=== PATIENT | male | born 1970 | race Caucasian/White ===

== ENCOUNTER 2018-03-31 17:23 | Emergency (ER) | payer BC, SELFPAY ==
[2018-03-31 17:34] VITALS: BP 148/93; PULSE 75; RESP 16; TEMP 37; O2SAT 98
[2018-03-31] MEDS: Tetracaine 0.5% 4 ML BTL (17:59)
--- NOTE | 2018-03-31 19:08 | ED.GENADUL_ITS ---
Discharge Plan Disposition Patient Disposition: HOME Discharge Details Chief Complaint: EyeProblem Primary Care Provider: Citlalli Duarte ED Provider: Jack Mckenna Home Meds and New Rx's Prescriptions: Continued Prilosec OTC 20 MG tablet,delayed release (DR/EC) 20 mg PO DAILY RF: 0 ibuprofen 600 MG tablet 600 mg PO Q6H PRN PRNQty: 30 RF: 0 acetaminophen [Tylenol] 325 MG tablet 650 mg PO Q4H PRN PRNQty: 30 RF: 0 Discharge Data Discharge Date/Time-TO BE ENTERED AT DEPARTURE: 03/31/18 19:32 Medical Decision Making Right eye corneal abrasion at 12 o'clock position. No evidence of retained foreign body. Patient states woodchips. Eye was irrigated and patient placed up on erythromycin ointment HPI General Mode of arrival: ambulatory . Date/Time Provider Initiated Documentation: 03/31/18 17:27 . Limitations to Documentation: no limitations . Information obtained by: patient and RN notes reviewed . History of Present Illness 47 year old M presents to the emergency department with the chief complaint of Right eye foreign body, described as mild, with intensity rated at 3. Quality is described as aching, and is localized to the eyes. Patient started experiencing this hour(s) (2) and it has been constant. Patient notes no other symptoms.. Patient did receive the following treatments prior to arrival, none Related Data Home Medications Medication Instructions Recorded Confirmed Prilosec OTC 20 mg PO DAILY 12/27/15 03/31/18 acetaminophen [Tylenol] 650 mg PO Q4H PRN PRN #30 tab 07/01/17 03/31/18 ibuprofen 600 mg PO Q6H PRN PRN #30 tablet 07/01/17 03/31/18 Previous Rx's Medication Instructions Recorded acetaminophen [Tylenol] 650 mg PO Q4H PRN PRN #30 tab 07/01/17 ibuprofen 600 mg PO Q6H PRN PRN #30 tablet 07/01/17 Allergies Allergy/AdvReac Type Severity Reaction Status Date / Time No Known Allergies Allergy Unverified 07/28/17 08:06 General Stated Complaint: EyeProblem AVILA: 4 Review of Systems Constitutional Denies chills, Denies fever(s) and Denies headache(s) Eyes Reports as per HPI, Reports blurry vision, Denies eye discharge, Denies loss of vision, Reports eye pain and Denies seeing flashes ENT Denies headache(s), Denies nasal congestion and Denies nasal discharge Neurologic Denies headache(s) and Denies loss of vision PFS Medical History Erectile dysfunction Family history of prostate cancer GERD (gastroesophageal reflux disease) Hydrocele Hypertriglyceridemia Joint pain Left inguinal hernia Obstructive sleep apnea of adult Surgical History Cholecystectomy (06/30/16) Hydrocelectomy (07/28/17) Varicocele Ligation Family History Other Neoplasm Social History Smoking/Tobacco Use Status: Never Exam Const General: cooperative Orientation: alert, awake and oriented x3 HENMT Head: normal to inspection, normocephalic and atraumatic Ears: hearing grossly normal bilaterally and external ears normal General nose exam: external nose normal Eyes Alignment and Position: alignment normal Periorbital: periorbital findings normal Eyelids: eyelids normal Conjunctivae: conjunctivae normal Sclera: scleral abnormality right scleral injection diffuse Cornea: corneas abnormal on the right fluorescein used and abrasion central, linear and at the following clock position (12); with no foreign body noted and fluorescein used Pupils: PERRL, normal by confrontation and accommodation normal EOM: EOM intact bilaterally Neck Neck: normal visual inspection, full ROM, trachea midline and supple Course Vital Signs Temperature 37.0 C 03/31/18 17:34 Pulse 75 03/31/18 17:34 Respiratory Rate 16 03/31/18 17:34 Blood Pressure 148/93 H 03/31/18 17:34 Pulse Oximetry 98 03/31/18 17:34 Temperature 37.0 C 03/31/18 17:34 Temperature Source Skin 03/31/18 17:34 Pulse 75 03/31/18 17:34 Respiratory Rate 16 03/31/18 17:34 Respiratory Effort Non-Labored 03/31/18 17:37 Blood Pressure 148/93 H 03/31/18 17:34 Blood Pressure Position Sitting 03/31/18 17:34 Pulse Oximetry 98 03/31/18 17:34 Oxygen Delivery Method Room Air 03/31/18 17:34 Oxygen Flow Rate 0 03/31/18 17:34 Pain Level 3 03/31/18 17:34
[2018-03-31] MEDS: Erythromycin Ophth Oint 3.5 GM TUBE OD (19:25)
== END 2018-03-31 19:32 | disposition home or self-care (01) ==
PROVIDERS: Emergency Provider Nurse Practitioner Family; PCP Nurse Practitioner
DX: S05.01XA Injury of conjunctiva and corneal abrasion without foreign body, right eye, initial encounter (principal); T15.01XA Foreign body in cornea, right eye, initial encounter
CPT/HCPCS: 99284; 99283

== ENCOUNTER 2018-09-02 01:18 | Outpatient (CLI) | payer BC, SELFPAY ==
--- NOTE | 2018-09-02 12:02 | DI.US_ITS ---
SYMPTOMS/DIAGNOSIS: LT TESTICULAR PAIN, N50.812, LT INGUINAL HERNIA, K40.90, LT HYDROCELE, N43.3 LEFT INGUINAL ULTRASOUND: Sonographic evaluation of the left inguinal region was performed. No cystic or solid mass is seen. No evidence of a left inguinal hernia is seen. IMPRESSION: No sonographic evidence of a left inguinal hernia. TESTICULAR ULTRASOUND: Routine examination was performed. The right testicle measures 3.9 x 2.4 x 2.9 cm. It is homogeneous with normal blood flow. No evidence of an intratesticular mass or torsion. The right epididymis is unremarkable. Note is made of a small right hydrocele measuring 3.3 x 0.8 x 2.0 cm. The left testicle measures 4 x 2 x 2.6 cm. It is homogeneous with normal blood flow. No evidence of an intratesticular mass or torsion is seen. The left epididymis shows normal blood flow. The left epididymal head is slightly more prominent compared to the right but no mass or abnormal blood flow is seen. Note is made of a small left hydrocele measuring 1.7 x 1.8 x 1.2 cm. IMPRESSION: 1. No evidence of an intratesticular mass or torsion. 2. Small bilateral hydroceles.
== END 2018-09-02 01:38 ==
PROVIDERS: PCP Nurse Practitioner; Visit Provider Nurse Practitioner
DX: N50.812 Left testicular pain (principal); K40.90 Unilateral inguinal hernia, without obstruction or gangrene, not specified as recurrent; N43.3 Hydrocele, unspecified
CPT/HCPCS: 76857; 76870

== ENCOUNTER 2018-09-13 13:59 | Outpatient (REF) | payer BC, SELFPAY ==
[2018-09-13 18:54] LABS: Cholesterol 306 mg/dL (50-200); HDL Cholesterol 21 mg/dL (40-60); Magnesium 2.1 mg/dL (1.8-2.4); Vitamin B12 661 pg/mL (193-986)
[2018-09-13 18:55] LABS: Triglyceride 1206 mg/dL (30-150)
[2018-09-13 19:44] LABS: LDL CHOLESTEROL 73 mg/dL (<100)
== END 2018-09-13 14:19 ==
LOC: NCHCN 13:59
PROVIDERS: PCP Nurse Practitioner; Visit Provider Nurse Practitioner
DX: K21.9 Gastro-esophageal reflux disease without esophagitis (principal); E78.1 Pure hyperglyceridemia
CPT/HCPCS: 80061; 83721; 82607; 83735

== ENCOUNTER 2019-03-14 08:18 | Outpatient (REF) | payer BC, SELFPAY ==
[2019-03-14 11:47] LABS: ALT 36 U/L (16-63); AST 21 U/L (15-37); Albumin 4.1 g/dL (3.4-5.0); Alkaline Phosphatase 110 U/L (46-116); Anion Gap 12.2 mmol/L (3-11); BUN 16 mg/dL (7-18); Bilirubin, Total 0.7 mg/dL (0.2-1.0); CO2 24.8 mmol/L (21.0-32.0); CREATININE 1.05 mg/dL (0.70-1.30); Calcium 9.3 mg/dL (8.5-10.1); Calculated LDL 51 mg/dL; Chloride 104 mmol/L (98-107); Cholesterol 160 mg/dL (<200); Glucose 102 mg/dL (74-106); HDL Cholesterol 30 mg/dL (40-60); Potassium 4.6 mmol/L (3.5-5.1); Sodium 141 mmol/L (136-145); Total Protein 7.2 g/dL (6.4-8.2); Triglyceride 395 mg/dL (<150)
== END 2019-03-14 08:38 ==
LOC: NCHCN 08:18
PROVIDERS: PCP Nurse Practitioner; Visit Provider Nurse Practitioner
DX: E78.1 Pure hyperglyceridemia (principal)
CPT/HCPCS: 80053; 80061; 83036

== ENCOUNTER 2019-08-12 13:44 | Emergency (ER) | payer BC, SELFPAY ==
[2019-08-12 13:49] VITALS: BP 154/102; PULSE 91; TEMP 36.6; O2SAT 97
--- NOTE | 2019-08-12 14:03 | ED.GENADUL_ITS ---
Discharge Plan Disposition Patient Disposition: HOME Condition: Stable Discharge Details Chief Complaint: Abd Prob Clinical Impression: Colitis, Hernia Primary Care Provider: Citlalli Duarte ED Provider: Gonsalo Starks Home Meds and New Rx's Prescriptions: Continued Prilosec OTC 20 MG tablet,delayed release (DR/EC) 20 mg PO DAILY RF: 0 naproxen sodium [Aleve] 220 mg Tablet 440 mg PO QDAY PRNRF: 0 Discharge Instructions Instructions: Colitis (ED), Ventral Hernia (ED) Additional Instructions: Please allow for bowel rest. Maintain a clear liquid diet today and tomorrow. Tomorrow night you may advance to bland soft foods (rice, bread). Advance diet slowly the day after as tolerated. Avoid any activities that reproduce pain or hernia. Please follow-up with general surgery. Call for an appointment. Please contact your primary care physician to arrange follow-up. Return to the ER for any worsening or new concerning symptoms. Referrals: Citlalli Duarte [Primary Care Provider] - Bhakti Nassar DO [OSTEOPATHIC DOCTOR] - Discharge Data Discharge Date/Time-TO BE ENTERED AT DEPARTURE: 08/12/19 16:07 Medical Decision Making 1413??49-year-old male presents with 2 to 3 days of umbilical and left lower quadrant abdominal pain, tender palpation left lower quadrant, concerned that he has had intermittent bulging hernia that is not currently present. Patient has had remote left inguinal hernia repair in the past. Consider diverticulitis versus colitis versus intermittent hernia. Plan to obtain CT imaging to assess for acute surgical pathology. Labs to assess renal function and for pancreatitis. Will maintain n.p.o. status and provide IV fluid. 15:55 --CT the abdomen pelvis was interpreted by radiology: IMPRESSION: 1. Possible cystitis. 2. Mild enlargement fat containing right inguinal hernia from prior exam. 3. Possible mild distal left-sided colitis and proctitis versus artifact of incomplete distention. Pattern not typical for diverticulitis. All results were reviewed with the patient. Questions were addressed. I encouraged him to follow-up with general surgery and will refer him to on-call Dr. Nassar. I advised him to return immediately should have any worsening or new concerning symptoms. Lab Data Lab results reviewed: Yes I reviewed the patient's lab results. Lab results narrative: Laboratory Tests Range/Units 08/12/19 08/12/1908/11/20 14:12 14:12 14:12 WBC (4.4-10.8) k/cumm 8.83 RBC (4.50-6.00) m/cumm 5.38 Hgb (13.5-17.5) g/dL 15.3 Hct (40.0-50.0) % 43.8 MCV (80-95) fL 81.4 MCH (27.0-33.0) pg 28.4 MCHC (32.0-36.0) g/dL 34.9 RDW (11.8-14.1) % 13.7 Plt Count (130-400) x1000/uL 221 MPV (8.0-11.0) fL 10.1 Immature Gran % % 0.2 Neutrophils % 64.5 Lymphocytes % 24.5 Monocytes % 9.6 Eosinophils % 1.1 Basophils % 0.1 Absolute Neutrophils (1.2-6.7) k/cumm 5.69 Absolute Lymphocytes (1.2-3.4) k/cumm 2.16 Absolute Monocytes (0.11-0.7) k/cumm 0.85 H Absolute Eosinophils (0.0-0.7) k/cumm 0.10 Absolute Basophils (0.0-0.2) k/cumm 0.01 Sodium (136-145) mmol/L 136 Potassium (3.5-5.1) mmol/L 3.8 Chloride (98-107) mmol/L 103 Carbon Dioxide (21.0-32.0) mmol/L 23.2 Anion Gap (3-11) mmol/L 9.8 BUN (7-18) mg/dL 8 Creatinine (0.70-1.30) mg/dL 1.22 Estimated GFR/1.73 m2 (mL/min/1.73m2) >= 60.00 Glucose (74-106) mg/dL 151 H Calcium (8.5-10.1) mg/dL 8.2 L Total Bilirubin (0.2-1.0) mg/dL 0.5 AST (15-37) U/L 15 ALT (16-63) U/L 25 Alkaline Phosphatase (46-116) U/L 114 Total Protein (6.4-8.2) g/dL 6.9 Albumin (3.4-5.0) g/dL 3.7 Lipase (73-393) U/L 101 Urine Color (Yellow) Urine Clarity (Clear) Urine pH (5-8) Ur Specific [place] (1.005-1.025) Urine Protein (Negative) mg/dL Urine Ketones (Negative) mg/dL Urine Blood (Negative) Urine Nitrite (Negative) Urine Bilirubin (Negative) Urine Urobilinogen (Up TO 0.2) EU/dL Ur Leukocyte Esterase (Negative) Urine Glucose (Negative) mg/dL Range/Units 08/12/19 15:58 WBC (4.4-10.8) k/cumm RBC (4.50-6.00) m/cumm Hgb (13.5-17.5) g/dL Hct (40.0-50.0) % MCV (80-95) fL MCH (27.0-33.0) pg MCHC (32.0-36.0) g/dL RDW (11.8-14.1) % Plt Count (130-400) x1000/uL MPV (8.0-11.0) fL Immature Gran % % Neutrophils % Lymphocytes % Monocytes % Eosinophils % Basophils % Absolute Neutrophils (1.2-6.7) k/cumm Absolute Lymphocytes (1.2-3.4) k/cumm Absolute Monocytes (0.11-0.7) k/cumm Absolute Eosinophils (0.0-0.7) k/cumm Absolute Basophils (0.0-0.2) k/cumm Sodium (136-145) mmol/L Potassium (3.5-5.1) mmol/L Chloride (98-107) mmol/L Carbon Dioxide (21.0-32.0) mmol/L Anion Gap (3-11) mmol/L BUN (7-18) mg/dL Creatinine (0.70-1.30) mg/dL Estimated GFR/1.73 m2 (mL/min/1.73m2) Glucose (74-106) mg/dL Calcium (8.5-10.1) mg/dL Total Bilirubin (0.2-1.0) mg/dL AST (15-37) U/L ALT (16-63) U/L Alkaline Phosphatase (46-116) U/L Total Protein (6.4-8.2) g/dL Albumin (3.4-5.0) g/dL Lipase (73-393) U/L Urine Color (Yellow) Yellow Urine Clarity (Clear) Clear Urine pH (5-8) 5.5 Ur Specific [place] (1.005-1.025) <= 1.005 Urine Protein (Negative) mg/dL Negative Urine Ketones (Negative) mg/dL Negative Urine Blood (Negative) Negative Urine Nitrite (Negative) Negative Urine Bilirubin (Negative) Negative Urine Urobilinogen (Up TO 0.2) EU/dL 0.2 Ur Leukocyte Esterase (Negative) Negative Urine Glucose (Negative) mg/dL Negative HPI General Mode of arrival: ambulatory . Date/Time Provider Initiated Documentation: 08/12/19 13:48 . Limitations to Documentation: no limitations . Information obtained by: patient . HPI Narrative: 49-year-old male presents with chief complaint of abdominal pain. Pain started 2 to 3 days ago and has persisted. Pain is intermittent. Described as cramping. Moderate to severe intensity. Pain localized to umbilical area and left lower quadrant. He is concerned that pain is secondary to umbilical hernia as he intermittently feels a bulge in the umbilical area. Bulge is not currently present. He currently has mild discomfort in his abdomen. Seems to present more postprandially when he has some cramping. He has associated loose stool over the past 2 days. Related Data Home Medications Medication Instructions Recorded Confirmed Prilosec OTC 20 mg PO DAILY 12/27/15 08/12/19 naproxen sodium [Aleve] 440 mg PO QDAY PRN 08/12/19 08/12/19 Allergies Allergy/AdvReac Type Severity Reaction Status Date / Time No Known Allergies Allergy Unverified 08/12/19 13:52 General Stated Complaint: Abd Prob AVILA: 3 Review of Systems All systems reviewed & are unremarkable except as noted in HPI and below Constitutional Constitutional: Denies fever(s) Gastrointestinal Gastrointestinal: Reports abdominal pain and Reports loose stools (Over the past few days) Genitourinary Genitourinary: Denies hematuria, Denies dysuria, Denies scrotal swelling, Denies testicular pain, Denies urinary frequency and Denies urinary urgency [facility] Medical History Erectile dysfunction Family history of prostate cancer GERD (gastroesophageal reflux disease) Hydrocele Hypertriglyceridemia Joint pain Left inguinal hernia Obstructive sleep apnea of adult Surgical History Cholecystectomy (06/30/16) Hydrocelectomy (07/28/17) Varicocele Ligation Family History Other Neoplasm Social History Smoking/Tobacco Use Status: Never Alcohol Intake: current Alcohol Intake frequency: holidays/special occasions only Drug use: Never Substance use type: does not use Do you feel safe at home: Yes Do you feel safe in your relationship?: Yes Exam Const General: cooperative and no acute distress HENMT Mouth: moist mucous membranes Eyes Conjunctivae: normal conjunctivae Sclera: normal sclerae Neck Neck: trachea midline and supple Resp Auscultation: clear to auscultation bilaterally, no rales, no rhonchi and no wheezes Cardio Jugular venous pressure: no JVD Rate: regular rate and not tachycardic Rhythm: regular rhythm GI Inspection: non-distended Palpation: soft, not firm, no guarding, no hernias, no masses, not rigid and tender in the LLQ Skin General skin exam: no rashes or lesions noted Neuro General: patient alert, patient awake and tone normal Extrem General: no edema Psych Appearance: grossly normal Mental Status: mental status grossly normal Course Vital Signs Vital signs: Vital Signs Temperature 36.6 C 08/12/19 13:49 Pulse 91 H 08/12/19 13:49 Blood Pressure 154/102 H 08/12/19 13:49 Pulse Oximetry 97 08/12/19 13:49 Temperature 36.6 C 08/12/19 13:49 Temperature Source Temporal Artery Scan 08/12/19 13:49 Pulse 91 H 08/12/19 13:49 Respiratory Effort Non-Labored 08/12/19 13:51 Blood Pressure 154/102 H 08/12/19 13:49 Blood Pressure Position Sitting 08/12/19 13:49 Pulse Oximetry 97 08/12/19 13:49 Oxygen Delivery Method Room Air 08/12/19 13:49 Oxygen Flow Rate 0 08/12/19 13:49 Pain Level 8 08/12/19 13:49
[2019-08-12 14:20] LABS: Abs Immature Grans 0.02 k/cumm (0.0-0.09); Absolute Basophil Count 0.01 k/cumm (0.0-0.2); Absolute Lymphocyte Count 2.16 k/cumm (1.2-3.4); Absolute Monocyte Count 0.85 k/cumm (0.11-0.7); Absolute Neutrophil Count 5.69 k/cumm (1.2-6.7); Basophils % 0.1; Eosinophils % 1.1; HCT 43.8 % (40.0-50.0); HGB 15.3 g/dL (13.5-17.5); Immature Grans % 0.2 %; Lymphocytes % 24.5; Mean Corp. HGB Concentration 34.9 g/dL (32.0-36.0); Mean Corpuscular Hemoglobin 28.4 pg (27.0-33.0); Mean Corpuscular Volume 81.4 fL (80-95); Mean Platelet Volume 10.1 fL (8.0-11.0); Monocytes % 9.6; Neutrophils % 64.5; Platelet Count 221 x1000/uL (130-400); RBC 5.38 m/cumm (4.50-6.00); RBC Distribution Width 13.7 % (11.8-14.1); White Blood Cell Count 8.83 k/cumm (4.4-10.8)
[2019-08-12] MEDS: Normal Saline 1,000 ML 125 ML IV (14:22)
[2019-08-12] MEDS: Normal Saline Flush 10 ML SYR IVP ×2 (14:22→14:41)
[2019-08-12 14:29] LABS: Lipase 101 U/L (73-393)
[2019-08-12 14:32] LABS: ALT 25 U/L (16-63); AST 15 U/L (15-37); Albumin 3.7 g/dL (3.4-5.0); Alkaline Phosphatase 114 U/L (46-116); Anion Gap 9.8 mmol/L (3-11); BUN 8 mg/dL (7-18); Bilirubin, Total 0.5 mg/dL (0.2-1.0); CO2 23.2 mmol/L (21.0-32.0); CREATININE 1.22 mg/dL (0.70-1.30); Calcium 8.2 mg/dL (8.5-10.1); Chloride 103 mmol/L (98-107); Glucose 151 mg/dL (74-106); Potassium 3.8 mmol/L (3.5-5.1); Sodium 136 mmol/L (136-145); Total Protein 6.9 g/dL (6.4-8.2)
[2019-08-12] MEDS: Omnipaque 350 MG/ML 100 ML BTL IJ (14:40)
[2019-08-12] MEDS: Normal Saline - Diluent 50 ML VIAL IV (14:41)
--- NOTE | 2019-08-12 15:13 | DI.VRAD_ITS ---
PROCEDURE INFORMATION: Exam: CT Abdomen And Pelvis With Contrast Exam date and time: 08/12/2019 2:49 PM Age: 49 years old Clinical indication: Other: Llq and umbilical pain; Prior surgery; Surgery date: 6+ months; Surgery type: Inguinal hernia surgery 2 years ago. Pain since TECHNIQUE: Imaging protocol: Computed tomography of the abdomen and pelvis with intravenous contrast. Radiation optimization: All CT scans at this facility use at least one of these dose optimization techniques: automated exposure control; mA and/or kV adjustment per patient size (includes targeted exams where dose is matched to clinical indication); or iterative reconstruction. Contrast material: OMNIPAQUE 350; Contrast volume: 100 ml; Contrast route: IV; COMPARISON: CT ABD PELVIS WITH CONTRAST 06/28/2017 8:36 AM FINDINGS: Mediastinum: Moderate-sized hiatal hernia again seen. Liver: Mild fatty liver. Gallbladder and bile ducts: Status post cholecystectomy. Pancreas: Normal. No ductal dilation. Spleen: Normal. No splenomegaly. Adrenals: Normal. No mass. Kidneys and ureters: Normal. No hydronephrosis. Stomach and bowel: There is mild diverticulosis. There is mild wall edema at the level of the sigmoid colon and rectum versus artifact of incomplete distention. There is no adjacent inflammatory change. Appendix: Appendix identified, within normal limits. Intraperitoneal space: Unremarkable. No free air. No significant fluid collection. Vasculature: Unremarkable. No abdominal aortic aneurysm. Lymph nodes: Unremarkable. No enlarged lymph nodes. Bladder: The bladder wall appears slightly thickened allowing for the degree of distention. Reproductive: Unremarkable as visualized. Bones/joints: Moderate lower lumbar spondylosis. Soft tissues: Small, fat containing periumbilical hernia. Small, fat containing right inguinal hernia is larger than seen on prior study. By report it is understood the left inguinal hernia has been repaired. IMPRESSION: 1. Possible cystitis. 2. Mild enlargement fat containing right inguinal hernia from prior exam. 3. Possible mild distal left-sided colitis and proctitis versus artifact of incomplete distention. Pattern not typical for diverticulitis. COMMENTS: Preliminary interpretation is based on receipt of 1258 image(s). A final report will be issued subsequently. Dictated and Authenticated by: Bushra Fuchs MD. Ordering:ZOILA Brush MD
--- NOTE | 2019-08-12 15:50 | DI.CT_ITS ---
EXAM: CT ABDOMEN PELVIS W CLINICAL HISTORY: LLQ and umbilical pain COMPARISON: CT ABD PELVIS WITH CONTRAST from 06/28/2017 FINDINGS: CT examination of the abdomen and pelvis was performed with a bolus infusion of 100 cc of Omnipaque 3 50. Images obtained through the lung bases are unremarkable. Note is made of a hiatal hernia. The liver and spleen appear normal. Pancreas appears normal. Abdominal aorta is of normal diameter. No major vascular abnormality is seen. Adrenals and kidneys appear. No evidence of urinary tract obstruction or calcification. No abdominal or pelvic adenopathy is seen. Small to moderate-sized fat containing right inguinal her tiffanie noted. Appendix is normal. No evidence of bowel obstruction. There is question of mild colonic wall thickening, particularly involving rectosigmoid, question very faint pericolonic edema, consider colitis. No specific evidence of diverticulitis. There is wall thickening of the urinary bladder which is nonspecific, the differential diagnosis woul d include cystitis. IMPRESSION: Questionable colonic wall findings, colitis may be considered. Please correlate clinically. Urinary bladder wall thickening, nonspecific, cystitis versus chronic bladder outlet obstruction, ple ase correlate clinically.
[2019-08-12 16:06] VITALS: BP 154/102; PULSE 91; TEMP 36.6; O2SAT 97
[2019-08-12 16:06] LABS: Bilirubin Negative (Negative); Blood Negative (Negative); Clarity Clear (Clear); Glucose Negative (Negative); Ketones Negative (Negative); Leukocyte Esterase Negative (Negative); Nitrite Negative (Negative); Specific Gravity <= 1.005 (1.005-1.025); Urobilinogen 0.2 EU/dL (Up TO 0.2); pH 5.5 (5-8)
== END 2019-08-12 16:07 | disposition home or self-care (01) ==
PROVIDERS: Emergency Provider Student in an Organized Health Care Education/Training Program; PCP Nurse Practitioner
DX: K52.89 Other specified noninfective gastroenteritis and colitis (principal); K40.90 Unilateral inguinal hernia, without obstruction or gangrene, not specified as recurrent
CPT/HCPCS: 36415; 80053; 83690; 96360; 96361; 99285; 74177; 81003; 85025; 99284; J3490

== ENCOUNTER 2019-12-05 08:54 | Outpatient (REF) | payer BC, SELFPAY ==
[2019-12-05 19:17] LABS: Hemoglobin A1C 5.7 % (<5.7)
[2019-12-05 19:23] LABS: Cholesterol 237 mg/dL (<200); HDL Cholesterol 25 mg/dL (40-60); Triglyceride 561 mg/dL (<150)
[2019-12-05 19:38] LABS: LDL CHOLESTEROL 77 mg/dL (<100)
== END 2019-12-05 09:14 ==
LOC: NCHCN 08:54
PROVIDERS: PCP Nurse Practitioner; Visit Provider Nurse Practitioner
DX: R73.03 Prediabetes (principal); E78.1 Pure hyperglyceridemia; K21.9 Gastro-esophageal reflux disease without esophagitis; G47.33 Obstructive sleep apnea (adult) (pediatric)
CPT/HCPCS: 80061; 83721; 83036

== ENCOUNTER 2020-02-09 08:03 | Outpatient (CLI) | payer BC, SELFPAY ==
[2020-02-11 11:34] LABS: SARS-CoV-2 RNA Not Detected (NotDetected)
[2020-02-11 11:35] LABS: SARS-CoV-2 RNA Source Nasal/Nares
== END 2020-02-09 08:23 ==
PROVIDERS: PCP Nurse Practitioner; Visit Provider Surgery
DX: Z11.59 Encounter for screening for other viral diseases (principal); Z01.818 Encounter for other preprocedural examination
CPT/HCPCS: U0003

== ENCOUNTER 2020-02-13 13:21 | Day surgery (SDC) | payer BC, SELFPAY ==
[2020-02-13 13:45] VITALS: BP 145/101; PULSE 72; RESP 18; TEMP 36.4; O2SAT 96
[2020-02-13] MEDS: Lactated Ringers 1,000 ML 80 ML IV (14:05)
--- NOTE | 2020-02-13 14:45 | W.PM.DSUDISC ---
Discharge Plan Disposition Patient Disposition: HOME Condition: Good Discharge Details Reason For Visit: Colonoscopy Attending Provider: Latasha Henry Primary Care Provider: Citlalli Duarte Home Meds and New Rx's Prescriptions: Continued omeprazole magnesium [Prilosec OTC] 20 MG tablet,delayed release (DR/EC) 20 mg PO DAILY RF: 0 sildenafil 50 mg tablet 50 mg PO DAILY PRNRF: 0 atorvastatin 20 mg tablet 20 mg PO QHS RF: 0 potassium gluconate 595 mg (99 mg) tablet 595 mg PO DAILY RF: 0 One-A-Day Men's 50 Plus 400-20-370 mcg tablet 1 tab PO QHS RF: 0 naproxen sodium [Aleve] 220 mg Tablet 440 mg PO QDAY PRNRF: 0 Discontinued polyethylene glycol 3350 17 gram/dose powder 238 g PO ONCE Qty: 238 RF: 0 bisacodyl [Dulcolax (bisacodyl)] 5 mg tablet,delayed release (DR/EC) 5 mg PO ONCE Qty: 4 RF: 0 Discharge Instructions Additional Instructions: Findings: Your colonoscopy showed mild diverticulosis. Make sure to take in 30grams of fiber daily. Follow up: Plan for routine screening colonoscopy in 10 years or sooner if symptoms arise. Please call if you develop: fevers >101.5 Nausea or Vomiting Abdominal pain that is not transient DAY SURGERY UNIT POST COLONOSCOPY INSTRUCTIONS 1. Because there will be medication in your system for the next 24 hours, you may feel a little sleepy. Your coordination will be affected. Therefore: a. Do not drive or operate dangerous equipment for 24 hours. b. Do not drink alcohol beverages for 24 hours (not even beer). c. Plan to go home and rest for the day. 2. Generally there are no restrictions on your activity after a day or so has gone by, but you may feel a bit fatigued for a few days. 3 After you arrive home you may have a light meal and return to a normal diet as you can tolerate it without feeling sick to your stomach. 4. After surgery, you may feel pain or discomfort. This should be only transient, but if it persists please contact your doctor. 5. If there are any questions regarding the findings of your procedure, please feel free to contact your doctor. 6. If you are unable to contact your doctor with a problem, contact the hospital at [phone]. 7. Continue all your regular medications unless directed otherwise. I understand the above instructions and have no questions. Signature of Patient or Responsible Adult Escort Date/Time Name of Responsible Adult Escort Signature of Nurse Date/Time Activity:: Activity as Tolerated Diet:: As Tolerated Discharge Orders Discharge Orders: Discharge Order (Routine); Ordered 02/13/20 Ordered By: Latasha Henry DS: Diagnosis Discharge Diagnosis (1) Diverticulosis: Status: Acute
--- NOTE | 2020-02-13 14:46 | W.COLOREPORT ---
Colonoscopy Report Date of procedure: 02/13/20 Pre-op diagnosis general: Screening Post-op diagnosis procedure note: other (Mild diverticulosis) Procedure: Colonoscopy Surgeon: Latasha Henry Anesthesia proc note operative: MAC Indications: This 49 year old man presents for his first screening colonoscopy. No symptoms or FH colon cancer. Recent CT to evaluate abdominal pain showed questionable colitis of the rectosigmoid region. Procedure Description: The patient was placed in the left [place] position. Propofol was titrated to sedation. Digital rectal examination revealed no abnormalities. The scope was advanced to the cecum without difficulty. The ileocecal valve and appendiceal orifice were clearly identified. The prep was good. The scope was slowly withdrawn over the course of greater than 6 minutes with no abnormalities seen in the ascending, transverse, descending colon. The sigmoid colon was carefully inspected with no obvious inflammation present. He had mild diverticulosis. The rectum was normal including on retroflexed view. The patient tolerated the procedure well and was stable to recovery. Plan for routine screening colonoscopy in 10 years or sooner if symptoms indicate.
[2020-02-13 16:08] VITALS: BP 130/85; PULSE 70; RESP 18; TEMP 36.6; O2SAT 96
== END 2020-02-13 16:25 | disposition home or self-care (01) ==
PROVIDERS: PCP Nurse Practitioner; Visit Provider Surgery
PROC: 0DJD8ZZ Inspection of Lower Intestinal Tract, Via Natural or Artificial Opening Endoscopic (ICD-10-PCS; CPT 45378; principal; 2020-02-13 13:30)
DX: Z12.11 Encounter for screening for malignant neoplasm of colon (principal); K57.30 Diverticulosis of large intestine without perforation or abscess without bleeding
CPT/HCPCS: 45378; J2001

== ENCOUNTER 2020-09-09 12:30 | Outpatient (REF) | payer BC, SELFPAY ==
[2020-09-09 15:37] LABS: ALT 30 U/L (16-63); AST 15 U/L (15-37); Albumin 3.9 g/dL (3.4-5.0); Alkaline Phosphatase 98 U/L (46-116); Anion Gap 9.3 mmol/L (3-11); BUN 12 mg/dL (7-18); Bilirubin, Total 0.7 mg/dL (0.2-1.0); CO2 25.7 mmol/L (21.0-32.0); CREATININE 1.1 mg/dL (0.70-1.30); Calcium 8.7 mg/dL (8.5-10.1); Calculated LDL 35 mg/dL (<100); Chloride 107 mmol/L (98-107); Cholesterol 127 mg/dL (<200); Glucose 128 mg/dL (74-106); HDL Cholesterol 26 mg/dL (40-60); Potassium 4.3 mmol/L (3.5-5.1); Sodium 142 mmol/L (136-145); Total Protein 6.6 g/dL (6.4-8.2); Triglyceride 331 mg/dL (<150)
[2020-09-09 22:14] LABS: PSA, Screening 0.3 ng/mL (0.0-3.5)
== END 2020-09-09 12:31 | disposition home or self-care (01) ==
LOC: NCHCN 12:30
PROVIDERS: PCP Nurse Practitioner; Visit Provider Physician Assistant
DX: R73.03 Prediabetes (principal); E78.1 Pure hyperglyceridemia; Z12.5 Encounter for screening for malignant neoplasm of prostate
CPT/HCPCS: 80053; 80061; 84153; 83036

== ENCOUNTER 2020-09-17 11:31 | Outpatient (REF) | payer BC, SELFPAY ==
[2020-09-17 19:43] LABS: ESR < 1 mm/hr (0-20)
== END 2020-09-17 11:32 | disposition home or self-care (01) ==
LOC: NCHCN 11:31
PROVIDERS: PCP Nurse Practitioner; Visit Provider Physician Assistant
DX: M60.9 Myositis, unspecified (principal)
CPT/HCPCS: 85652

== ENCOUNTER 2021-03-26 07:46 | Emergency (ER) | payer SELFPAY ==
--- NOTE | 2021-03-26 08:30 | ED.GENADUL_ITS ---
Discharge Plan Disposition Patient Disposition: HOME Condition: Stable Discharge Details Clinical Impression: Pain and swelling of left knee Primary Care Provider: Phillip Sousa ED Provider: Justine Carter Home Meds and New Rx's Prescriptions: New prednisone 20 mg tablet See Rx Instructions .ROUTE .COMPLEX Qty: 12 RF: 0 Continued omeprazole magnesium [Prilosec OTC] 20 MG tablet,delayed release (DR/EC) 20 mg PO DAILY RF: 0 sildenafil 50 mg tablet 50 mg PO DAILY PRNRF: 0 atorvastatin 20 mg tablet 20 mg PO QHS RF: 0 potassium gluconate 595 mg (99 mg) tablet 595 mg PO DAILY RF: 0 One-A-Day Men's 50 Plus 400-20-370 mcg tablet 1 tab PO QHS RF: 0 naproxen sodium [Aleve] 220 mg Tablet 440 mg PO QDAY PRNRF: 0 ibuprofen 200 mg Tablet 200 mg PO Q6H PRNRF: 0 Discharge Instructions Instructions: Gout (ED), Knee Pain (ED) Additional Instructions: Your blood work today is reassuring that this does not appear consistent with a significant knee infection. Your x-ray shows no evidence of significant abnormal findings. Your blood work does reveal that this could potentially be early onset or mild gout. Your knee pain also could be due to a knee strain or sprain or arthritis. Gout, sprain and arthritis can be treated similarly with rest, ice, elevation and nonsteroidal anti-inflammatory drugs such as Aleve or ibuprofen. As you have not had significant relief with Aleve or Toradol here, a prescription for steroids has been sent electronically to your pharmacy to take as directed until finished to help with pain and inflammation. You can continue to alternate Tylenol and Motrin as needed and directed for pain. It is important to rest, ice and elevate your left leg as much as possible. Follow-up with your scheduled appointment with your primary care doctor on April 11. Return immediately to the emergency department if you develop any worsening or concerning symptoms such as fever, worsening pain or redness of your knee. Follow-up with orthopedics if directed by your primary care doctor if symptoms do not improve or worsen. Referrals: Pancho Womack MD [ [facility] STAFF PHYSICIAN] - Discharge Data Discharge Physician: Justine Carter Medical Decision Making 50-year-old male presents with left knee pain for the past 4 days. Denies any known injury but pain worse with movement. Denies fever. Blood pressure hypertensive. Patient appears uncomfortable but nontoxic. He has an antalgic gait consistent with pain with weightbearing and left knee. He has pain with range of motion of left knee with minimal edema suprapateller region. No ligamentous laxity. Neurovascularly intact. Differential diagnosis includes knee strain or sprain, arthritis, gout. Do not suspect septic arthritis. Will obtain screening labs, x-ray and give a dose of Toradol. Labs and imaging reviewed. White blood cell count 11. ESR normal. CRP minimally elevated at 0.55. Uric acid minimally elevated at 7.9. X-ray negative. Patient reassessed and pain not improved with Toradol. Discussed with patient that his symptoms could be associated with early gout, sprain versus strain or arthritis. Discussed that his presentation and blood work does not appear consistent with a significant infection at this time. As he had no relief with NSAIDs at home or here, will treat with a short course of steroids. He was given 1 dose of prednisone here and a prescription sent electronically to his pharmacy. He was advised on importance of RICE. Patient given orthopedic follow-up if needed. He has an appointment with his primary care doctor on April 11. Usual and customary return precautions given prior to discharge. Medical Records Medical records reviewed: Yes I reviewed the patient's medical records. Imaging Data Radiologic Study: Radiologist's impression: XR KNEE LT 3V AP,LAT,LENORA CLINICAL HISTORY: L knee pain, r/o acute disease. TECHNIQUE: 2D digital imaging was performed of the left knee. Three images were obtained. AP, PA tunnel and lateral views were obtained. COMPARISON: No previous for comparison. FINDINGS: BONES: No acute fracture is present. No bony destructive lesion is seen. Enthesophytes are seen at the superior and inferior patella. JOINTS: The knee is normally aligned. No joint effusion is seen. SOFT TISSUE: Normal. IMPRESSION: Normal radiographs of the left knee. HPI General Mode of arrival: ambulatory . Date/Time Provider Initiated Documentation: 03/26/21 08:04 . Limitations to Documentation: no limitations . Information obtained by: patient . HPI Narrative: Patient is a 50-year-old male with a history of hyperlipidemia presents for knee pain for the past 4 days. 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 He denies any known fever or chills. He took Aleve last night without relief. He states the pain is worse with walking, bending or any movement at the left knee. Related Data Home Medications Medication Instructions Recorded Confirmed omeprazole magnesium [Prilosec OTC] 20 mg PO DAILY 12/27/15 03/26/21 naproxen sodium [Aleve] 440 mg PO QDAY PRN 08/12/19 03/26/21 atorvastatin 20 mg tablet 20 mg PO QHS 12/22/19 03/26/21 [id number] acid-vit 1 tab PO QHS 12/22/19 03/26/21 K-lycop 400 mcg-20 mcg-370 mcg tablet potassium gluconate 595 mg (99 mg) 595 mg PO DAILY 12/22/19 03/26/21 tablet sildenafil 50 mg tablet 50 mg PO DAILY PRN 12/22/19 03/26/21 ibuprofen 200 mg PO Q6H PRN 03/26/21 03/26/21 prednisone See Rx Instructions .ROUTE 03/26/21 .COMPLEX #12 tab Previous Rx's Medication Instructions Recorded prednisone See Rx Instructions .ROUTE 03/26/21 .COMPLEX #12 tab Allergies Allergy/AdvReac Type Severity Reaction Status Date / Time No Known Allergies Allergy Unverified 03/26/21 08:35 General AVILA: 3 Review of Systems All systems reviewed & are unremarkable except as noted in HPI and below Constitutional Constitutional: Reports as per HPI, Denies chills and Denies fever(s) Eyes Eyes: Denies blurry vision ENT Ears, Nose, Mouth, and Throat: Denies dizziness, Denies sore throat and Denies throat swelling Cardiovascular Cardiovascular: Denies chest pain and Denies dyspnea Respiratory Respiratory: Denies cough and Denies dyspnea Gastrointestinal Gastrointestinal: Denies abdominal pain, Denies diarrhea and Denies vomiting Genitourinary Genitourinary: Denies hematuria and Denies dysuria Musculoskeletal Musculoskeletal: Denies back pain, Denies numbness and Reports other (L knee pain) Integumentary/Breasts Skin/Breast: Denies lesions and Denies rash Neurologic Neurologic: Denies dizziness, Denies localized weakness and Denies numbness Allergic/Immunologic Allergic/Immunologic: Denies throat swelling PFSH All Active Problems (Updated 03/26/21 @ 10:29 by Justine Carter DO) Pain and swelling of left knee (Acute) Diverticulosis (Acute) Colitis (Acute) Cholelithiasis with acute cholecystitis with biliary obstruction (Acute) Screening for colon cancer (Acute) Prediabetes (Acute) Headache (Acute) Testicular pain (Acute) Medical History (Updated 03/26/21 @ 10:29 by Justine Carter DO) Erectile dysfunction Family history of prostate cancer GERD (gastroesophageal reflux disease) Hydrocele Hypertriglyceridemia Joint pain Left inguinal hernia Obstructive sleep apnea of adult Surgical History Cholecystectomy (06/30/16) Hx of hernia repair Hydrocelectomy (07/28/17) Varicocele Ligation Family History Other Neoplasm Social History Smoking/Tobacco Use Status: Never Smoking risk assessment performed?: Yes Alcohol Intake: current Alcohol Intake frequency: holidays/special occasions only Drug use: Never Substance use type: does not use Details: alcohol: week Do you feel safe at home: Yes Do you feel safe in your relationship?: Yes Exam Const General: cooperative, healthy appearing and no acute distress HENMT Head: normal to inspection Mouth: oral mucosae normal Eyes General: appearance normal, both eyes and all related structures Neck Neck: normal visual inspection Resp Effort & Inspection: normal respiratory effort and able to speak in complete sentences Cardio Rate: regular rate Skin General skin exam: no rashes or lesions noted Neuro General: patient alert, patient awake and patient oriented x3 Motor: muscle tone normal throughout Extrem Other: Pain in L knee with range of motion. Anterior knee slightly warm to touch with minimal edema suprapatellar knee. No crepitus or erythema. No pain with valgus or varus stress. Negative anterior and posterior drawer test. Left DP/PT pulses intact. Psych Appearance: grossly normal Affect: normal affect
[2021-03-26 08:31] VITALS: BP 156/111; PULSE 72; O2SAT 97
--- NOTE | 2021-03-26 08:45 | DI.RAD_ITS ---
Exam(s) XR KNEE LT 3V AP,LAT,LENORA EXAM: XR KNEE LT 3V AP,LAT,LENORA CLINICAL HISTORY: L knee pain, r/o acute disease. TECHNIQUE: 2D digital imaging was performed of the left knee. Three images were obtained. AP, PA t unnel and lateral views were obtained. COMPARISON: No previous for comparison. FINDINGS: BONES: No acute fracture is present. No bony destructive lesion is seen. Enthesophytes are seen at t he superior and inferior patella. JOINTS: The knee is normally aligned. No joint effusion is seen. SOFT TISSUE: Normal. IMPRESSION: Normal radiographs of the left knee. DATA REPOSITORY: RADIATION DOSE DELIVERED:
[2021-03-26] MEDS: Ketorolac 60 MG/2 ML VIAL IM (08:59)
[2021-03-26 09:41] LABS: Abs Immature Grans 0.04 10^3/uL (0.0-0.06); Absolute Basophil Count 0.03 10^3/uL (0.0-0.2); Absolute Eosinophil Count 0.11 10^3/uL (0.0-0.7); Absolute Lymphocyte Count 2.89 10^3/uL (1.2-3.4); Absolute Neutrophil Count 7.19 10^3/uL (1.2-6.7); Basophils % 0.3; HCT 45.4 % (40.0-50.0); HGB 15.2 g/dL (13.5-17.5); Immature Grans % 0.4; Lymphocytes % 25.6; MCH 28.5 pg (27.0-33.0); MCHC 33.5 % (32.0-36.0); MCV 85.2 fL (80-95); MPV 10.1 fL (8.0-11.0); Monocytes % 8.9; Neutrophils % 63.8; Nucleated RBC 0 %; Platelet Count 228 10^3/uL (130-400); RBC 5.33 10^6/uL (4.36-5.78); RDW 12.7 % (11.8-14.1); RDW-SD 39.5 fL; WBC 11.27 10^3/uL (4.4-10.8)
[2021-03-26 09:58] LABS: ALT 27 U/L (16-63); AST 16 U/L (15-37); Albumin 4.2 g/dL (3.4-5.0); Alkaline Phosphatase 92 U/L (46-116); Anion Gap 7.4 mmol/L (3-11); BUN 11 mg/dL (7-18); Bilirubin, Total 0.9 mg/dL (0.2-1.0); C-Reactive Protein 0.55 mg/dL (0.0-0.3); CO2 25.6 mmol/L (21.0-32.0); Calcium 8.7 mg/dL (8.5-10.1); Chloride 104 mmol/L (98-107); Glucose 111 mg/dL (74-106); Potassium 3.8 mmol/L (3.5-5.1); Sodium 137 mmol/L (136-145); Total Protein 7.2 g/dL (6.4-8.2); Uric Acid 7.9 mg/dL (3.5-7.2)
[2021-03-26 10:02] LABS: ESR 4 mm/hr (0-20)
[2021-03-26] MEDS: predniSONE 20 MG TAB 60 MG PO (10:30)
== END 2021-03-26 10:42 | disposition home or self-care (01) ==
PROVIDERS: Emergency Provider Physician Assistant; PCP Physician Assistant
DX: M25.562 Pain in left knee (principal); M22.42 Chondromalacia patellae, left knee
CPT/HCPCS: 73562; 80053; 85652; 96372; 99284; 84550; 85025; 86140; 99283; J1885; J7512

== ENCOUNTER 2021-04-11 07:54 | Outpatient (REF) | payer BC, SELFPAY ==
[2021-04-11 15:07] LABS: ALT 32 U/L (16-63); AST 19 U/L (15-37); Alkaline Phosphatase 89 U/L (46-116); Anion Gap 9.1 mmol/L (3-11); BUN 10 mg/dL (7-18); Bilirubin, Total 0.9 mg/dL (0.2-1.0); CO2 26.9 mmol/L (21.0-32.0); CREATININE 1.1 mg/dL (0.70-1.30); Calcium 8.9 mg/dL (8.5-10.1); Chloride 102 mmol/L (98-107); Cholesterol 294 mg/dL (<200); Glucose 105 mg/dL (74-106); HDL Cholesterol 31 mg/dL (40-60); Potassium 4.4 mmol/L (3.5-5.1); Sodium 138 mmol/L (136-145); Total Protein 6.8 g/dL (6.4-8.2); Triglyceride 647 mg/dL (<150)
[2021-04-11 15:19] LABS: LDL CHOLESTEROL 93 mg/dL (<100)
[2021-04-11 21:59] LABS: PSA, Screening 0.4 ng/mL (0.0-3.5)
== END 2021-04-11 07:55 | disposition home or self-care (01) ==
LOC: NCHCN 07:54
PROVIDERS: PCP Physician Assistant; Visit Provider Physician Assistant
DX: E78.1 Pure hyperglyceridemia (principal); R73.03 Prediabetes; Z12.5 Encounter for screening for malignant neoplasm of prostate
CPT/HCPCS: 80053; 80061; 83721; 84153; 83036

== ENCOUNTER 2021-07-13 18:46 | Emergency (ER) | payer BC, SELFPAY ==
[2021-07-13 18:51] VITALS: BP 165/104; PULSE 71; RESP 18; TEMP 36.6; O2SAT 99
--- NOTE | 2021-07-13 19:45 | DI.CT_ITS ---
Exam(s) CT ABDOMEN PELVIS W EXAM: CT ABDOMEN PELVIS W CLINICAL HISTORY: Abd Pain, Fall, Eval Umbilical Hernia. TECHNIQUE: Imaging Protocol: Axial computed tomography images with coronal and sagittal reformatted images were created and reviewed CONTRAST MATERIAL: Intravenous: Omnipaque 350 Contrast volume:100 ml Oral: no COMPARISON: CT CT ABDOMEN PELVIS W from 08/12/2019 FINDINGS: ABDOMEN: Lung Bases: Normal where visualized. Liver: Mild fatty infiltration.. No measurable mass. Gallbladder and biliary tract: Status post cholecystectomy. No radiodense calculus or dilation. Pancreas: Normal density, no abnormal calcifications or inflammatory process. Small hiatal hernia. Spleen: Normal. Kidneys: Normal size, contour and axis. No radiodense stones or obstructive uropathy. No masses seen. Adrenal glands: No masses seen. Abdominal Aorta: Abdominal portion non-dilated. No change small fatty umbilical hernia. PELVIS: Bladder: wall thickening, similar to prior . No calculi.No focal mass. Bowel: Sigmoid diverticulosis. No evidence of diverticulitis. No obstruction or bowel wall thickeni ng. Appendix normal. Peritoneal cavity: No ascites, collection or mesenteric inflammatory response. No change right fat co ntaining inguinal hernia. Bones: Degenerative disc changes at L5-S1. Reproductive organs: Prostate calcifications. Prostate normal size. Lymph nodes: Unremarkable. Impression: No acute abnormality. Stable small fatty containing umbilical hernia. Stable right inguinal hernia. Stable bladder wall thickening. Sigmoid diverticulosis. RADIATION DOSE DELIVERED: 1,018.34mGy.cm Total DLP DATA REPOSITORY: All CT scans at this facility are submitted to the National Radiology Data Registry (NRDR) Dose Index Registry (DIR) with the [employer] ([employer]). RADIATION OPTIMIZATION: All CT scans at this facility use at least one of these dose optimization te chniques: automated exposure control; mA and/or kV adjustment per patient size (includes targeted exa ms where dose is matched to clinical indication); or iterative reconstruction.
--- NOTE | 2021-07-13 19:49 | W.ED.GENAD ---
Discharge Plan Disposition Patient Disposition: HOME Condition: Stable Discharge Details Clinical Impression: Abdominal pain Primary Care Provider: Phillip Sousa ED Provider: La Nena Fajardo Home Meds and New Rx's Prescriptions: Continued omeprazole magnesium [Prilosec OTC] 20 MG tablet,delayed release (DR/EC) 20 mg PO DAILY 0RF atorvastatin 20 mg tablet 20 mg PO QHS 0RF potassium gluconate 595 mg (99 mg) tablet 595 mg PO DAILY 0RF One-A-Day Men's 50 Plus 400-20-370 mcg tablet 1 tab PO QHS 0RF Label Comments: not taking Rx Instructions: give with meal/snack naproxen sodium [Aleve] 220 mg Tablet 440 mg PO QDAY PRN0RF ibuprofen 200 mg Tablet 200 mg PO Q6H PRN0RF Label Comments: uses aleve No Action sildenafil 50 mg tablet 50 mg PO DAILY PRN0RF Rx Instructions: administer 30 minutes to 4 hours before activity Discharge Instructions Instructions: Abdominal Pain (ED) Additional Instructions: At this time the CT shows no significant emergent abnormality with the umbilical hernia. No evidence for any bleeding in the abdomen. You do have some degenerative changes in the L5-S1 area of your lumbar spine. also do have a small hiatal hernia and a small ventral hernia at the umbilicus or bellybutton. There is no evidence for any emergent surgery at this time however if this continues to bother you may follow-up with general surgery. Follow up with primary care provider in 3-5 days. Return to ED sooner if any worsening or concerns. Increase oral fluids. Please take Tylenol or Ibuprofen with food every 4-6 hours as needed for pain and swelling. Referrals: Phillip Sousa [Primary Care Provider] - Emely Alves MD [ [facility] STAFF PHYSICIAN] - Return if symptoms worsen Medical Decision Making 51-year-old male presents to the ER with chief complaint of abdominal pain which was exacerbated after a fall yesterday. Patient states that his feet slipped out from underneath him landing backwards onto his bottom. He states that he was not able to get up for a while. He denies hitting his head no neck or back pain he states that since then his abdomen has been tender in the periumbilical region. He reports he does have a history of 2 umbilical known hernias, and a left inguinal hernia repair which was done here at this hospital. He denies any other associated symptoms. Denies any nausea vomiting diarrhea no fever no chills no problems urinating. Past medical history includes GERD, hydrocele, left inguinal hernia repair, sleep apnea, high cholesterol, diverticulosis, colitis, acute cholecystitis. Surgical history includes cholecystectomy, hydrocelectomy, variceal ligation. On my initial exam he does have a small umbilical hernia which is easily reducible. He does have a possible right sided umbilical mass palpated. No discoloration, bowel sounds normoactive. Discussed options for follow-up with general surgery versus CT abdomen pelvis and lab, shared decision making performed patient opted for CT labs and further evaluation On my initial exam he does have a small umbilical hernia which is easily reducible. He has have a possible right sided umbilical mass palpated. No discoloration bowel sounds normoactive. Discussed options for follow-up with general surgery versus CT abdomen pelvis and lab, shared decision making performed patient opted for CT labs and further evaluation. Labs ordered including CBC, CMP, lactate, magnesium, urinalysis CT abdomen pelvis with contrast. CBC within normal limits, lactate within normal limits Discussed CT results with patient who verbalized understanding. I did express concern over his blood pressure which is 150/104, discussed follow-up with his PCP. He verbalizes understanding and says that it usually will go down on its own. This text was generated using [employer] system, please disregard any oddities of phrase or misspellings. Imaging Data Radiologic Study: Imaging: X-Ray Radiologist's impression: [facility] Radiological Report: FINDINGS: Lungs: Lung bases clear. Diaphragm: Small hiatal hernia. Liver: Probable fatty infiltration of the liver, difficult to confidently diagnose by CT imaging after administration of intravenous contrast. Gallbladder and bile ducts: Prior cholecystectomy with postop biliary dilatation. Pancreas: Normal appearing pancreas. Spleen: Normal appearing spleen. Adrenal glands: Normal appearing adrenal glands. Kidneys and ureters: Normal appearing kidneys. No hydronephrosis. Stomach and bowel: No oral contrast. Stomach partially decompressed. No small bowel dilatation to suggest obstruction. Sigmoid diverticulosis. No evidence of diverticulitis or colitis. Mild prominence of the perirectal veins suggesting probable hemorrhoids. Appendix: Normal diminutive appendix. Intraperitoneal space: No gross ascites or free air. Arteries: Normal caliber abdominal aorta. AMINATA III, SHELTON Preliminary Radiology Report MACHINE ASSEMBLER (QA) DISCREPANCY? If there is a discrepancy between the preliminary and final interpretation, please notify [facility] via [email or web address]. If you do not have access to our QA portal, call our QA team at [phone] CONFIDENTIALITY STATEMENT This report is intended only for the use of the referring physician, and only in accordance with law, If you received this in error, call [phone] Page 2 of 2 Lymph nodes: No pathologically enlarged mesenteric, retroperitoneal, or pelvic sidewall lymph nodes. Urinary bladder: Urinary bladder partially decompressed but circumferentially thick-walled. Reproductive: Normal-sized prostate gland and seminal vesicles. Coarse prostate calcifications. Bones/joints: No acute fracture seen among the bones of the abdomen or pelvis. Moderate discogenic degeneration L5-S1 with severe narrowing of the left L5-S1 neural foramen and partial flattening of the L5 nerve root, image 64 of series 7. Soft tissues: Moderate-sized fat containing right inguinal region hernia. Tiny fat-containing ventral hernia at the umbilicus, doubtful clinical significance. IMPRESSION: 1. No acute visceral or bony injury seen in the abdomen or pelvis. 2. Small hiatal hernia. 3. Urinary bladder partially decompressed but circumferentially thick-walled. Artifact of incomplete distention, acute cystitis, or chronic outflow obstruction could produce this appearance. 4. Probable fatty infiltration of the liver, difficult to confidently diagnose by CT imaging after administration of intravenous contrast. 5. Discogenic degeneration at L5-S1 with severe narrowing of the left L5-S1 neural foramen and partial flattening of the left L5 nerve root. Lab Data Lab results reviewed: Yes I reviewed the patient's lab results. Lab results narrative: Laboratory Tests Range/Units 07/13/21 07/13/21 07/13/21 20:10 20:10 20:10 WBC (4.4-10.8) 10^3/uL 8.46 RBC (4.36-5.78) 10^6/uL 5.37 Hgb (13.5-17.5) g/dL 15.0 Hct (40.0-50.0) % 45.1 MCV (80-95) fL 84.0 MCH (27.0-33.0) pg 27.9 MCHC (32.0-36.0) % 33.3 RDW (11.8-14.1) % 12.5 Plt Count (130-400) 10^3/uL 217 MPV (8.0-11.0) fL 10.4 Immature Gran % 0.4 Neutrophils % 54.7 Lymphocytes % 35.3 Monocytes % 7.3 Eosinophils % 2.1 Basophils % 0.2 Nucleated RBC % % 0 Absolute Neutrophils (1.2-6.7) 10^3/uL 4.62 Absolute Lymphocytes (1.2-3.4) 10^3/uL 2.99 Absolute Monocytes (0.1-0.8) 10^3/uL 0.62 Absolute Eosinophils (0.0-0.7) 10^3/uL 0.18 Absolute Basophils (0.0-0.2) 10^3/uL 0.02 VBG Lactate (0.6-1.4) mmol/L 1.3 Sodium (136-145) mmol/L 140 Potassium (3.5-5.1) mmol/L 3.8 Chloride (98-107) mmol/L 104 Carbon Dioxide (21.0-32.0) mmol/L 27.1 Anion Gap (3-11) mmol/L 8.9 BUN (7-18) mg/dL 13 Creatinine (0.70-1.30) mg/dL 1.0 Estimated GFR/1.73 m2 (mL/min/1.73m2) >= 60.00 Glucose (74-106) mg/dL 106 Calcium (8.5-10.1) mg/dL 8.5 Magnesium (1.8-2.4) mg/dL 2.0 Total Bilirubin (0.2-1.0) mg/dL 0.5 AST (15-37) U/L 9 L ALT (16-63) U/L 26 Alkaline Phosphatase (46-116) U/L 101 Total Protein (6.4-8.2) g/dL 6.6 Albumin (3.4-5.0) g/dL 3.9 Lipase (73-393) U/L 90 Urine Color (Yellow) Urine Clarity (Clear) Urine pH (5-8) Ur Specific [place] (1.005-1.025) Urine Protein (Negative) mg/dL Urine Ketones (Negative) mg/dL Urine Blood (Negative) Urine Nitrite (Negative) Urine Bilirubin (Negative) Urine Urobilinogen (Up TO 0.2) EU/dL Ur Leukocyte Esterase (Negative) Urine Glucose (Negative) mg/dL Range/Units 07/13/21 20:34 WBC (4.4-10.8) 10^3/uL RBC (4.36-5.78) 10^6/uL Hgb (13.5-17.5) g/dL Hct (40.0-50.0) % MCV (80-95) fL MCH (27.0-33.0) pg MCHC (32.0-36.0) % RDW (11.8-14.1) % Plt Count (130-400) 10^3/uL MPV (8.0-11.0) fL Immature Gran % Neutrophils % Lymphocytes % Monocytes % Eosinophils % Basophils % Nucleated RBC % % Absolute Neutrophils (1.2-6.7) 10^3/uL Absolute Lymphocytes (1.2-3.4) 10^3/uL Absolute Monocytes (0.1-0.8) 10^3/uL Absolute Eosinophils (0.0-0.7) 10^3/uL Absolute Basophils (0.0-0.2) 10^3/uL VBG Lactate (0.6-1.4) mmol/L Sodium (136-145) mmol/L Potassium (3.5-5.1) mmol/L Chloride (98-107) mmol/L Carbon Dioxide (21.0-32.0) mmol/L Anion Gap (3-11) mmol/L BUN (7-18) mg/dL Creatinine (0.70-1.30) mg/dL Estimated GFR/1.73 m2 (mL/min/1.73m2) Glucose (74-106) mg/dL Calcium (8.5-10.1) mg/dL Magnesium (1.8-2.4) mg/dL Total Bilirubin (0.2-1.0) mg/dL AST (15-37) U/L ALT (16-63) U/L Alkaline Phosphatase (46-116) U/L Total Protein (6.4-8.2) g/dL Albumin (3.4-5.0) g/dL Lipase (73-393) U/L Urine Color (Yellow) Yellow Urine Clarity (Clear) Clear Urine pH (5-8) 7.0 Ur Specific [place] (1.005-1.025) 1.025 Urine Protein (Negative) mg/dL Negative Urine Ketones (Negative) mg/dL Negative Urine Blood (Negative) Negative Urine Nitrite (Negative) Negative Urine Bilirubin (Negative) Negative Urine Urobilinogen (Up TO 0.2) EU/dL 0.2 Ur Leukocyte Esterase (Negative) Negative Urine Glucose (Negative) mg/dL Negative HPI General Mode of arrival: ambulatory. Date/Time Provider Initiated Documentation: 07/13/21 19:14. Limitations to Documentation: no limitations. Information obtained by: patient, RN notes reviewed and old records reviewed. HPI Narrative: 51-year-old male presents to the ER with chief complaint of abdominal pain which was exacerbated after a fall yesterday. Patient states that his feet slipped out from underneath him landing backwards onto his bottom. He states that he was not able to get up for a while. He denies hitting his head no neck or back pain he states that since then his abdomen has been tender in the periumbilical region. He reports he does have a history of 2 umbilical known hernias, and a left inguinal hernia repair which was done here at this hospital. He denies any other associated symptoms. Denies any nausea vomiting diarrhea no fever no chills no problems urinating. Past medical history includes GERD, hydrocele, left inguinal hernia repair, sleep apnea, high cholesterol, diverticulosis, colitis, acute cholecystitis. Surgical history includes cholecystectomy, hydrocelectomy, variceal ligation. On my initial exam he does have a small umbilical hernia which is easily reducible. He does have a possible right sided umbilical mass palpated. No discoloration, bowel sounds normoactive. Discussed options for follow-up with general surgery versus CT abdomen pelvis and lab, shared decision making performed patient opted for CT labs and further evaluation Related Data Home Medications Medication Instructions Recorded Confirmed omeprazole magnesium 20 mg 20 mg PO DAILY 12/27/15 07/13/21 tablet,delayed release (Prilosec OTC) naproxen sodium 220 mg tablet 440 mg PO QDAY PRN 08/12/19 07/13/21 (Aleve) atorvastatin 20 mg tablet 20 mg PO QHS 12/22/19 07/13/21 vifkxzrzzvax-[id number] acid-vit 1 tab PO QHS 12/22/19 03/26/21 K-lycop 400 mcg-20 mcg-370 mcg tablet (One-A-Day Men's 50 Plus) potassium gluconate 595 mg (99 mg) 595 mg PO DAILY 12/22/19 07/13/21 tablet sildenafil 50 mg tablet 50 mg PO DAILY PRN 12/22/19 07/13/21 ibuprofen 200 mg tablet 200 mg PO Q6H PRN 03/26/21 03/26/21 Allergies Allergy/AdvReac Type Severity Reaction Status Date / Time No Known Allergies Allergy Unverified 07/13/21 18:58 General Stated Complaint: Abd Prob AVILA: 3 Review of Systems All systems reviewed & are unremarkable except as noted in HPI and below Cardiovascular Cardiovascular: Denies chest pain and Denies dyspnea Respiratory Respiratory: Denies dyspnea Gastrointestinal Gastrointestinal: Reports abdominal pain, Denies change in bowel habits, Denies diarrhea, Denies loose stools, Denies nausea and Denies vomiting Genitourinary Genitourinary: Denies dysuria PFSH All Active Problems (Updated 07/13/21 @ 21:42 by La Nena Fajardo) Abdominal pain (Acute) Diverticulosis (Acute) Colitis (Acute) Cholelithiasis with acute cholecystitis with biliary obstruction (Acute) Screening for colon cancer (Acute) Prediabetes (Acute) Headache (Acute) Testicular pain (Acute) Medical History Erectile dysfunction Family history of prostate cancer GERD (gastroesophageal reflux disease) Hydrocele Hypertriglyceridemia Joint pain Left inguinal hernia Obstructive sleep apnea of adult Surgical History Cholecystectomy (06/30/16) Hx of hernia repair Hydrocelectomy (07/28/17) Varicocele Ligation Family History Other Neoplasm Social History Smoking/Tobacco Use Status: Never Smoking risk assessment performed?: Yes Alcohol Intake: current Alcohol Intake frequency: a few times a month Alcohol type: beer Drug use: Never Substance use type: does not use Do you feel safe at home: Yes Do you feel safe in your relationship?: Yes Exam Narrative Exam Narrative: Constitutional: Alert and oriented x3. Appears stated age. Overweight body habitus. Head: Normocephalic, no trauma. Eyes: Pupils PERRL, Red reflex noted, EOM's intact. Eyelids symmetrical without lesions, discharge, or swelling. ENT: Bilateral TM's WNL, External ear normal to inspection, no mastoid TTP, swelling, or erythema, Nasal turbinates WNL, no nasal discharge. Normal dentition, Posterior pharynx WNL, no exudate. Chest: RRR, Normal S1, S2, distal pulses intact. Resp: Lungs clear to auscultation bilaterally, no wheezes, rales, or rhonchi. Abdomen: Soft, non-distended, Normoactive bowel sounds all 4 quads. Small umbilical hernia noted, easily reduced and soft. Possible right umbilical hernia palpated. Musculoskeletal: Normal gait, 5/5 strength to all four extremities. Skin: No suspicious rashes or lesions. Capillary refill less than 2 sec. Neurologic: Cranial nerves II-XII intact. Alert and oriented x 3. Motor: No deficits noted. Sensory: Intact bilaterally all 4 extremities. Hematologic/Lymphatic: No ecchymosis, no lymphadenopathy. Course Vital Signs Vital signs: Vital Signs Temperature 36.6 C 07/13/21 18:51 Pulse 71 07/13/21 18:51 Respiratory Rate 18 07/13/21 18:51 Blood Pressure 165/11 H 07/13/21 18:51 Pulse Oximetry 99 07/13/21 18:51 Temperature 36.6 C 07/13/21 18:51 Temperature Source Skin 07/13/21 18:51 Pulse 71 07/13/21 18:51 Respiratory Rate 18 07/13/21 18:51 Respiratory Effort 07/13/21 19:02 Blood Pressure 165/11 H 07/13/21 18:51 Blood Pressure Position Sitting 07/13/21 18:51 Pulse Oximetry 99 07/13/21 18:51 Oxygen Delivery Method Room Air 07/13/21 18:51 Oxygen Flow Rate 0 07/13/21 18:51 Pain Level 4 07/13/21 18:51 PAWSS Have you Been Recently Intoxicated or Drunk Within the Last 30 days?: No Have you Ever Experienced Previous Episodes of Alcohol Withdrawal?: No Have you ever Experienced Withdrawal Seizures?: No Have you ever Experienced Delirium Tremens(DT)s?: No Have you ever undergone Alcohol Rehabilitation Treatment (i.e, inpt ot outpatient treatment programs)?: No Have you ever Experienced Blackouts?: No Have you ever Combined Alcohol with other Downers within the last 90 days?: No Have you ever Combined Alcohol with any other Substance of Abuse during the last 90 days?: No Positive Blood Alcohol level on Presentation? [PCS.BAL]: No Evidence of Increased Autonomic Activity (i.e. HR>120, tremor, sweating, agitation, nausea)?: No Result: 0
[2021-07-13 20:20] LABS: Abs Immature Grans 0.03 10^3/uL (0.0-0.06); Absolute Basophil Count 0.02 10^3/uL (0.0-0.2); Absolute Eosinophil Count 0.18 10^3/uL (0.0-0.7); Absolute Lymphocyte Count 2.99 10^3/uL (1.2-3.4); Absolute Monocyte Count 0.62 10^3/uL (0.1-0.8); Absolute Neutrophil Count 4.62 10^3/uL (1.2-6.7); Basophils % 0.2; Eosinophils % 2.1; HCT 45.1 % (40.0-50.0); Immature Grans % 0.4; Lactate 1.3 mmol/L (0.6-1.4); Lymphocytes % 35.3; MCH 27.9 pg (27.0-33.0); MCHC 33.3 % (32.0-36.0); MPV 10.4 fL (8.0-11.0); Monocytes % 7.3; Neutrophils % 54.7; Nucleated RBC 0 %; Platelet Count 217 10^3/uL (130-400); RBC 5.37 10^6/uL (4.36-5.78); RDW 12.5 % (11.8-14.1); RDW-SD 38.5 fL; WBC 8.46 10^3/uL (4.4-10.8)
[2021-07-13 20:35] LABS: ALT 26 U/L (16-63); AST 9 U/L (15-37); Albumin 3.9 g/dL (3.4-5.0); Alkaline Phosphatase 101 U/L (46-116); Anion Gap 8.9 mmol/L (3-11); BUN 13 mg/dL (7-18); Bilirubin, Total 0.5 mg/dL (0.2-1.0); CO2 27.1 mmol/L (21.0-32.0); Calcium 8.5 mg/dL (8.5-10.1); Chloride 104 mmol/L (98-107); Glucose 106 mg/dL (74-106); Lipase 90 U/L (73-393); Potassium 3.8 mmol/L (3.5-5.1); Sodium 140 mmol/L (136-145); Total Protein 6.6 g/dL (6.4-8.2)
[2021-07-13 20:39] LABS: Bilirubin Negative (Negative); Blood Negative (Negative); Clarity Clear (Clear); Glucose Negative (Negative); Ketones Negative (Negative); Leukocyte Esterase Negative (Negative); Nitrite Negative (Negative); Specific Gravity 1.025 (1.005-1.025); Urobilinogen 0.2 EU/dL (Up TO 0.2)
[2021-07-13] MEDS: Omnipaque 350 MG/ML 100 ML BTL IJ (20:45)
[2021-07-13] MEDS: Normal Saline Flush 10 ML SYR IVP (20:46)
--- NOTE | 2021-07-13 21:12 | DI.[facility]_ITS ---
PROCEDURE INFORMATION: Exam: CT Abdomen And Pelvis With Contrast Exam date and time: 07/13/2021 8:48 PM Age: 51 years old Clinical indication: Other: Abd pain, fall, eval umilical hernia TECHNIQUE: Imaging protocol: Computed tomography of the abdomen and pelvis with contrast. Contrast material: 350; Contrast volume: 100 ml; Contrast route: INTRAVENOUS (IV); COMPARISON: CT ABDOMEN PELVIS W 08/12/2019 2:42 PM FINDINGS: Lungs: Lung bases clear. Diaphragm: Small hiatal hernia. Liver: Probable fatty infiltration of the liver, difficult to confidently diagnose by CT imaging after administration of intravenous contrast. Gallbladder and bile ducts: Prior cholecystectomy with postop biliary dilatation. Pancreas: Normal appearing pancreas. Spleen: Normal appearing spleen. Adrenal glands: Normal appearing adrenal glands. Kidneys and ureters: Normal appearing kidneys. No hydronephrosis. Stomach and bowel: No oral contrast. Stomach partially decompressed. No small bowel dilatation to suggest obstruction. Sigmoid diverticulosis. No evidence of diverticulitis or colitis. Mild prominence of the perirectal veins suggesting probable hemorrhoids. Appendix: Normal diminutive appendix. Intraperitoneal space: No gross ascites or free air. Arteries: Normal caliber abdominal aorta. Lymph nodes: No pathologically enlarged mesenteric, retroperitoneal, or pelvic sidewall lymph nodes. Urinary bladder: Urinary bladder partially decompressed but circumferentially thick-walled. Reproductive: Normal-sized prostate gland and seminal vesicles. Coarse prostate calcifications. Bones/joints: No acute fracture seen among the bones of the abdomen or pelvis. Moderate discogenic degeneration L5-S1 with severe narrowing of the left L5-S1 neural foramen and partial flattening of the L5 nerve root, image 64 of series 7. Soft tissues: Moderate-sized fat containing right inguinal region hernia. Tiny fat-containing ventral hernia at the umbilicus, doubtful clinical significance. IMPRESSION: 1. No acute visceral or bony injury seen in the abdomen or pelvis. 2. Small hiatal hernia. 3. Urinary bladder partially decompressed but circumferentially thick-walled. Artifact of incomplete distention, acute cystitis, or chronic outflow obstruction could produce this appearance. 4. Probable fatty infiltration of the liver, difficult to confidently diagnose by CT imaging after administration of intravenous contrast. 5. Discogenic degeneration at L5-S1 with severe narrowing of the left L5-S1 neural foramen and partial flattening of the left L5 nerve root. Dictated and Authenticated by: Walter Arrieta MD. Ordering:JOSE Deutsch MD
[2021-07-13 21:20] VITALS: BP 150/104; PULSE 73; TEMP 36.7; O2SAT 94
[2021-07-13 21:57] VITALS: BP 142/95; PULSE 70; RESP 16; TEMP 37; O2SAT 96
== END 2021-07-13 22:04 | disposition home or self-care (01) ==
PROVIDERS: Emergency Provider Registered Nurse Emergency; PCP Physician Assistant
DX: R10.9 Unspecified abdominal pain (principal); W01.0XXA Fall on same level from slipping, tripping and stumbling without subsequent striking against object, initial encounter; K42.9 Umbilical hernia without obstruction or gangrene; R03.0 Elevated blood-pressure reading, without diagnosis of hypertension
CPT/HCPCS: 36415; 80053; 83690; 99285; 74177; 81003; 83605; 83735; 85025; 99284; J3490

== ENCOUNTER 2022-01-22 10:50 | Outpatient (REF) | payer BC, SELFPAY ==
[2022-01-22 16:06] LABS: ALT 16 U/L (16-63); AST 13 U/L (15-37); Albumin 4.1 g/dL (3.4-5.0); Alkaline Phosphatase 102 U/L (46-116); Anion Gap 7.4 mmol/L (3-11); BUN 13 mg/dL (7-18); Bilirubin, Total 0.6 mg/dL (0.2-1.0); CO2 30.6 mmol/L (21.0-32.0); Calcium 8.9 mg/dL (8.5-10.1); Chloride 106 mmol/L (98-107); Cholesterol 158 mg/dL (<200); Estimated GFR 90.56 (mL/min/1.73m2); Glucose 98 mg/dL (74-106); HDL Cholesterol 34 mg/dL (40-60); Potassium 4.2 mmol/L (3.5-5.1); Sodium 144 mmol/L (136-145); Total Protein 6.7 g/dL (6.4-8.2); Triglyceride 455 mg/dL (<150)
[2022-01-22 16:23] LABS: LDL CHOLESTEROL 46 mg/dL (<100)
[2022-01-23 13:46] LABS: PSA, Screening 0.3 ng/mL (<=3.5)
== END 2022-01-22 10:51 | disposition home or self-care (01) ==
LOC: NCHCN 10:50
PROVIDERS: PCP Physician Assistant; Visit Provider Physician Assistant
DX: E78.1 Pure hyperglyceridemia (principal); R73.03 Prediabetes; Z12.5 Encounter for screening for malignant neoplasm of prostate
CPT/HCPCS: 80053; 80061; 83721; 84153; 83036

== ENCOUNTER 2022-06-15 09:30 | Emergency (ER) | payer BC, SELFPAY ==
[2022-06-15 09:36] VITALS: BP 174/104; PULSE 72; RESP 18; O2SAT 97
--- NOTE | 2022-06-15 10:12 | ED.GENADUL_ITS ---
Discharge Plan Disposition Patient Disposition: Home Condition: Stable Discharge Details Clinical Impression: Laceration of left lower leg Primary Care Provider: Phillip Sousa ED Provider: Jack Mckenna Home Meds and New Rx's Prescriptions: New cephalexin 500 mg tablet 500 mg PO QID 4 Days Qty: 16 0RF Continued omeprazole magnesium [Prilosec OTC] 20 MG tablet,delayed release (DR/EC) 20 mg PO DAILY sildenafil 50 mg tablet 50 mg PO DAILY PRN Rx Instructions: administer 30 minutes to 4 hours before activity atorvastatin 20 mg tablet 20 mg PO QHS potassium gluconate 595 mg (99 mg) tablet 595 mg PO DAILY One-A-Day Men's 50 Plus 400-20-370 mcg tablet 1 tab PO QHS Patient Comments: not taking Rx Instructions: give with meal/snack naproxen sodium [Aleve] 220 mg Tablet 440 mg PO QDAY PRN gabapentin 300 mg capsule 300 mg PO BID Patient Comments: TAKE TWO CAPSULES BY MOUTH EVERY DAY cyanocobalamin (vitamin B-12) 1,000 mcg capsule 5,000 mcg PO DAILY Patient Comments: Take 1 capsule by mouth once a day ibuprofen 200 mg Tablet 200 mg PO Q6H PRN Patient Comments: uses aleve Discharge Instructions Instructions: Laceration (ED) Additional Instructions: Watch for any signs of infection and return immediately to the emergency department if these occur. Otherwise keep dressing in place for the next 24-48 hours and then keep wound clean and dry. Return to the emergency department 14 days for suture removal. Referrals: Phillip Sousa [Primary Care Provider] - (As needed) Discharge Data Discharge Date/Time-TO BE ENTERED AT DEPARTURE: 06/15/22 10:27 Medical Decision Making Patient presenting to the emergency department for chief complaint of chainsaw laceration to left anterior leg. Patient denies any other injury or trauma and states tetanus is up-to-date. Did verify that tetanus was up-to-date. Patient has a mostly superficial left lower extremity irregular laceration. It is 6 cm in total length with 3 cm involving subcutaneous tissue. All deep tissue is intact. Actively bleeding. No obvious significant contamination of the wound. Wound was thoroughly irrigated. Please see wound repair. 3 sutures were placed. Given mechanism of injury will place patient on Keflex and have patient monitor symptoms. After discussion of diagnosis and plan of care patient has no further needs, questions, or concerns and states clear understanding to return to the emergency department for any worsening symptoms. This documentation was generated using [employer] dictation system, please disregard any oddities of phrase or misspellings. HPI General Mode of arrival: ambulatory . Date/Time Provider Initiated Documentation: 06/15/22 09:42 . Limitations to Documentation: no limitations . Information obtained by: patient and RN notes reviewed . History of Present Illness 51 year old M presents to the emergency department with the chief complaint of Left leg laceration, described as mild, with intensity rated at 3. Quality is described as aching, and is localized to the left and lower extremity. Patient reports no radiation. Patient started experiencing this hour(s) (<1) and it has been constant. No relieving factors improve symptom(s), No exacerbating factors reported . Patient notes no other symptoms.. Patient did receive the following treatments prior to arrival, none Related Data Home Medications Medication Instructions Recorded Confirmed omeprazole magnesium 20 mg 20 mg PO DAILY 12/27/15 06/15/22 tablet,delayed release (Prilosec OTC) naproxen sodium 220 mg tablet 440 mg PO QDAY PRN 08/12/19 06/15/22 (Aleve) atorvastatin 20 mg tablet 20 mg PO QHS 12/22/19 06/15/22 afjlhoqnrcff-let-awzjs acid-vit 1 tab PO QHS 12/22/19 06/15/22 K-lycop 400 mcg-20 mcg-370 mcg tablet (One-A-Day Men's 50 Plus) potassium gluconate 595 mg (99 mg) 595 mg PO DAILY 12/22/19 06/15/22 tablet sildenafil 50 mg tablet 50 mg PO DAILY PRN 12/22/19 06/15/22 ibuprofen 200 mg tablet 200 mg PO Q6H PRN 03/26/21 03/26/21 cephalexin 500 mg tablet 500 mg PO QID 4 days #16 tabs 06/15/22 cyanocobalamin (vitamin B-12) 5,000 mcg PO DAILY 06/15/22 06/15/22 1,000 mcg capsule gabapentin 300 mg capsule 300 mg PO BID 06/15/22 06/15/22 Previous Rx's Medication Instructions Recorded cephalexin 500 mg tablet 500 mg PO QID 4 days #16 tabs 06/15/22 Allergies Allergy/AdvReac Type Severity Reaction Status Date / Time No Known Allergies Allergy Unverified 06/15/22 09:39 General Stated Complaint: Laceration AVILA: 3 Review of Systems Narrative: 6 systems reviewed and unremarkable except what is marked below. Musculoskeletal Musculoskeletal: Denies limited range of motion, Denies numbness and Denies tingling Integumentary/Breasts Skin/Breast: Reports as per HPI and Reports wounds Neurologic Neurologic: Denies numbness and Denies tingling PFSH All Active Problems (Updated 06/15/22 @ 10:17 by Jack Mckenna NP) Laceration of left lower leg (Acute) Diverticulosis (Acute) Colitis (Acute) Cholelithiasis with acute cholecystitis with biliary obstruction (Acute) Screening for colon cancer (Acute) Prediabetes (Acute) Headache (Acute) Testicular pain (Acute) Medical History Erectile dysfunction Family history of prostate cancer GERD (gastroesophageal reflux disease) Hydrocele Hypertriglyceridemia Joint pain Left inguinal hernia Obstructive sleep apnea of adult Surgical History Cholecystectomy (06/30/16) Hx of hernia repair Hydrocelectomy (07/28/17) Varicocele Ligation Family History Other Neoplasm Social History Smoking/Tobacco Use Status: Never Smoking risk assessment performed?: Yes Alcohol Intake: current Alcohol Intake frequency: a few times a month Alcohol type: beer Drug use: Never Substance use type: does not use Do you feel safe at home: Yes Do you feel safe in your relationship?: Yes Exam Const General: cooperative, no acute distress and not ill appearing Orientation: alert, awake and oriented x3 Resp Effort & Inspection: normal respiratory effort, able to speak in complete sentences and no respiratory distress Skin General skin exam: no rashes or lesions noted Neuro General: patient alert, patient awake, patient oriented x3, moves all extremities and no focal motor deficits Sensory Exam: no sensory deficits noted Extrem General: normal exam except as noted Left lower extremity: lower leg Details: laceration mid lower leg anterior Details: linear, irregular, actively bleeding, involving subcutaneous tissue, with motor nerve function intact and with sensation intact Course Vital Signs Vital signs: Vital Signs Pulse 72 06/15/22 09:36 Respiratory Rate 18 06/15/22 09:36 Blood Pressure 174/104 H 06/15/22 09:36 Pulse Oximetry 97 06/15/22 09:36 Pulse 72 06/15/22 09:36 Respiratory Rate 18 06/15/22 09:36 Respiratory Effort Normal, Non-Labored 06/15/22 09:42 Blood Pressure 174/104 H 06/15/22 09:36 Pulse Oximetry 97 06/15/22 09:36 Oxygen Delivery Method Room Air 06/15/22 09:36 Oxygen Flow Rate 0 06/15/22 09:36 Procedures Laceration Laceration 1: Site: lower extremity Side (If applicable): left Size (cm): 6 Description: linear and irregular Depth: simple, single layer Local Anesthetic: Lidocaine 1% and with Epi Amount of anesthesia used (mL): 2 Pre-repair: wound explored, irrigated extensively and deep structures intact Skin layer closed with: other (Prolene) Size (cm): 3-0 Number of sutures: 3 Technique: simple, interrupted PAWSS Have you Been Recently Intoxicated or Drunk Within the Last 30 days?: No Have you Ever Experienced Previous Episodes of Alcohol Withdrawal?: No Have you ever Experienced Withdrawal Seizures?: No Have you ever Experienced Delirium Tremens(DT)s?: No Have you ever undergone Alcohol Rehabilitation Treatment (i.e, inpt ot outpatient treatment programs)?: No Have you ever Experienced Blackouts?: No Have you ever Combined Alcohol with other Downers within the last 90 days?: No Have you ever Combined Alcohol with any other Substance of Abuse during the last 90 days?: No Positive Blood Alcohol level on Presentation? [PCS.BAL]: No Evidence of Increased Autonomic Activity (i.e. HR>120, tremor, sweating, agitation, nausea)?: No Result: 0
[2022-06-15] MEDS: Cephalexin 500 MG CAP PO (10:15)
[2022-06-15 10:25] VITALS: BP 133/100; PULSE 74; RESP 20; O2SAT 99
== END 2022-06-15 10:27 | disposition home or self-care (01) ==
PROVIDERS: Emergency Provider Nurse Practitioner Family; PCP Physician Assistant
DX: S81.812A Laceration without foreign body, left lower leg, initial encounter (principal); W29.3XXA Contact with powered garden and outdoor hand tools and machinery, initial encounter
CPT/HCPCS: 12002

== ENCOUNTER 2023-01-13 17:59 | Outpatient (REF) | payer BC, SELFPAY ==
[2023-01-13 19:05] LABS: Hemoglobin A1C 6.1 % (<5.7)
[2023-01-13 19:14] LABS: ALT 40 U/L (16-63); AST 19 U/L (15-37); Albumin 4.1 g/dL (3.4-5.0); Alkaline Phosphatase 101 U/L (46-116); BUN 11 mg/dL (7-18); Bilirubin, Total 0.7 mg/dL (0.2-1.0); CREATININE 1.1 mg/dL (0.70-1.30); Calcium 9.5 mg/dL (8.5-10.1); Chloride 104 mmol/L (98-107); Cholesterol 213 mg/dL (<200); Estimated GFR 80.27 (mL/min/1.73m2); Glucose 119 mg/dL (74-106); HDL Cholesterol 31 mg/dL (40-60); Potassium 4.3 mmol/L (3.5-5.1); Sodium 139 mmol/L (136-145); Total Protein 7.1 g/dL (6.4-8.2); Triglyceride 680 mg/dL (<150)
[2023-01-13 19:27] LABS: LDL CHOLESTEROL 53 mg/dL (<100)
[2023-01-14 19:43] LABS: PSA, Screening 0.3 ng/mL (<=3.5)
== END 2023-01-13 18:00 | disposition home or self-care (01) ==
LOC: NCHCN 17:59
PROVIDERS: PCP Physician Assistant; Visit Provider Physician Assistant
DX: R40.0 Somnolence (principal); R73.03 Prediabetes
CPT/HCPCS: 80053; 80061; 83721; 84153; 83036

== ENCOUNTER 2023-02-10 05:54 | Day surgery (SDC) | payer BC, SELFPAY ==
[2023-02-10] VITALS (13 sets, daily range): BP systolic 89–136; BP diastolic 66–99; PULSE 60–77; RESP 12–18; TEMP 36.2–36.7; O2SAT 91–99; BMI 32.5
--- NOTE | 2023-02-10 06:09 | ROE_ITS ---
Date of service: 02/10/23 Time of Service: 08:46 Operative Note Operative Note DATE OF PROCEDURE: 02/10/23 PRE-OP DIAGNOSIS: Right inguinal hernia and umbilical hernia POST-OP DIAGNOSIS: same (direct and indirect inguinal hernia) PROCEDURE: 1. Umbilical hernia repair with mesh 2. Right inguinal hernia repair with mesh SURGEON: Emely Alves PRINTED FORMS PROOFREADER: Roz Camarena ANESTHESIA TYPE: Local By Surgeon, General LMA/ETT and Primary Nerve Block Refer to Anesthesia Record ESTIMATED BLOOD LOSS: 25 PATHOLOGY: none sent COMPLICATIONS: None Patient was transported to: PACU Patient's condition: stable Implants: Ventralex: [id number] 2024-04-01 BARD Mesh X2: REF- [id number] LOT- [id number] 2027-04-01 Indications: Sudheer is a pleasant 52-year-old gentleman who comes in for preoperative history and physical. He is scheduled for a right inguinal hernia repair and umbilical hernia repair. We reviewed the procedure in detail as well as the risks, benefits and complications. He already had some information given to him back in August when I saw him. He has been able to review that and has no further questions. I believe he has a good understanding of both the procedure as well as its possible complications at this time. Risks, benefits and complications have been reviewed. Complications include but are not limited to bleeding, infection, injury to vas, vessels and nerves, injury to bowel, recurrence (3- 5%), chronic pain and adverse reaction to medications. Questions were entertained and answered to their satisfaction and they wished to proceed. 07:00 am- Patient was seen in [facility] for his hernia repair surgery. He has no new symptoms. He has no questions about the surgery or the possible complications. The Right inguinal area was marked as was the umbilicus. He signed the consent. Findings: 2 x 2 cm Umbilical hernia defect repaired with a 6.4 round mesh Large direct and small indirect inguinal hernia repaired with plug and mesh Procedure Description: After informed consent was obtained the patient was taken to the operating room and placed in a supine position. Monitors and SCDs were applied and a timeout was done. The patient's name, date of , procedure type, procedure site, allergies to medications, preoperative antibiotic, and DVT prophylaxis were all reviewed. Fire risk was assessed. Next anesthesia did a tap block on the right side under ultrasound guidance as well as a left rectus block. Please see their separate dictation. Once anesthesia was done the abdomen was prepped and draped in a sterile surgical fashion. Next an incision was made with a 15 blade under the umbilicus. Dissection was done with cautery through the subcutaneous tissues and through the umbilical stalk down to the fascia. The hernia defect was identified and measured 2 cm x 2 cm. The hernia sac was opened and the peritoneum was swept for adhesions. No adhesions were noted. A 6.4 cm round mesh was then placed under the peritoneum and secured in 4 quarters with 2-0 Proline. Once the mesh was secured the tissues were irrigated with some normal saline. No bleeding was identified. The fascia was closed over the mesh with 0 vicryl running suture. 2-0 Vicryl was used to secure the umbilicus down to the fascia. The subcutaneous tissue was re-approximated with 2-0 vicryl. The dermis was re- approximated with a running 4-0 Monocryl. Next 0.5% Marcaine was injected into the dermis in the right lower quadrant. An incision was made with a 15 blade in the right lower quadrant. Dissection was done with cautery through the subcutaneous tissues and Tobias's fascia down to the external oblique fascia. The external ring was identified and the external oblique fascia was opened sharply through the external ring. The cut fascia was grasped with hemostats the cord structures were identified and a [place] drain was placed around them. The ilioinguinal nerve was identified and cut. The cremasteric muscle was dissected away from the cord structures using both cautery and blunt dissection. Some preperitoneal fat was noted and gently removed from the cord structures and reduced. An XL plug was placed into the indirect defect and secured with 2-0 proline. A flat piece of mesh was then attached to the lacunar ligament using a 2-0 Prolene double armed suture. The mesh was secured laterally and medially with a 2-0 Prolene, with a running suture. The tails of the mesh were wrapped around the cord structures effectively cinching down the internal ring. Once the mesh was secured the tissues were irrigated with some normal saline. No bleeding was identified. The external oblique fascia was reapproximated using 2-0 Vicryl running suture. The Tboias's fascia was reapproximated using interrupted 3-0 Vicryl. The dermis was reapproximated with a running 4-0 Vicryl. The skin was cleaned and dried and skin affix was applied to both incisions. The patient was woken up and taken back to recovery in stable condition. There were no immediate complications. Sponge, instrument and needle counts were correct at the end of the case x2.
--- NOTE | 2023-02-10 06:14 | PDOC.DSDIS_ITS ---
Date of service: 02/10/23 Time of Service: 11:50 Discharge Plan Disposition Patient Disposition: Home Condition: Stable Discharge Details Reason For Visit: [facility] and Attending Provider: Emely Alves Primary Care Provider: Phillip Sousa Home Meds and New Rx's Prescriptions: New tramadol 50 mg tablet 50 mg PO Q6H PRNQty: 14 0RF Continued omeprazole magnesium [Prilosec OTC] 20 MG tablet,delayed release (DR/EC) 20 mg PO DAILY atorvastatin 20 mg tablet 20 mg PO QHS potassium gluconate 595 mg (99 mg) tablet 595 mg PO DAILY One-A-Day Men's 50 Plus(vit K) 400-20-370 mcg tablet 1 tab PO QHS Patient Comments: not taking Rx Instructions: give with meal/snack naproxen sodium [Aleve] 220 mg Tablet 440 mg PO QDAY PRN cyanocobalamin (vitamin B-12) 1,000 mcg capsule 5,000 mcg PO DAILY Patient Comments: Take 1 capsule by mouth once a day gabapentin 300 mg capsule 900 mg PO QHS Patient Comments: TAKE TWO CAPSULES BY MOUTH EVERY DAY Discharge Instructions Instructions: Open Herniorrhaphy (DC) Additional Instructions: Activity at Home after surgery: 1. Make sure you walk outside at least 4 times per day 2. You should be able to climb a flight of stairs 3. No driving while in pain or taking pain medications 4. No strenuous activity or heavy lifting ( no more then 10 lb) for 4 weeks (open surgery) Diet, Nutrition, & wound healin. Avoid alcohol until after you are recovered from your surgery 2. Make sure to eat plenty of lean protein (meat, fish, eggs, cottage cheese, beans) 3. Eat a variety of fruits and vegetables. Eat plenty of high fiber foods to avoid constipation. 4. Drink plenty of liquids to stay hydrated and avoid constipation Pain Medications: 1. Tylenol 650mg every 6 hours as needed and Ibuprofen 600 mg every 6 hours as needed. You may alternate between the 2 medications every 3 hours 2. If a narcotic has been prescribed take as directed only for breakthrough pain For Constipation: 1. Take Milk of Magnesia or MiraLax as needed for constipation Other: 1. You may shower daily. Do not scrub the incisions 2. Do not soak the incisions for 1 week 3. You may alternate ice and heat as needed for pain and swelling Wound Care: 1. Keep the incisions clean and dry Please call our office if you develop: 1. Fevers >101.5 2. Nausea or Vomiting 3. Worsening pain 4. Redness and thick discharge from the wounds If after hours please call the Hospital at and ask to speak to the on-call surgeon Stand Alone Forms: Anesthesia Discharge InstJustice, Karoline Van (U) Referrals: Emely Alves MD [ [facility] STAFF PHYSICIAN] - Activity:: see above Remove Dressings/Wound Care:: Do Not Remove Shower/Bathe:: 24 hours Diet:: As Tolerated Discharge Orders Discharge Orders: Discharge Order (Routine); Ordered 02/10/23 Ordered By: Emely Alves DS: Diagnosis Discharge Diagnosis (1) Right inguinal hernia: Status: Acute Asessment and Plan: The patient is doing well post-op from his umbilical hernia and RIH repair surgery.? He is having no nausea or vomiting. He is tolerating liquids and a snack. The pt is not having any chest pain or SOB.? His pain is adequately controlled. He does think that he will need a few Tramadol for 2-3 days. ?HEENT:? no eye pain/drainage/redness/swelling. Mild sore throat ?Cardio- NSR, no chest pain, BP stable- see VS record ?Pulm: no sob or productive cough. No hemoptysis ?Incision- dressing is c/d/i w/ no excessive bleeding or drainage ?I discussed with the patient the findings at the time of surgery and the patient?s progress. ?We reviewed expectations at home; what the patient could expect for recovery time, and in the post-operative period.? We discussed the importance of walking to avoid blood clots and pneumonia.? We discussed and reviewed the patient's post-operative wound care and dressing needs.?? We reviewed their step-ennis pain management plan, Rx called to the pharmacy of their choice.? We reviewed activity and limitations-see discharge instructions. We reviewed warning signs, and when to seek medical attention- see d/c instructions.?? Patient was given a postoperative follow-up appointment. Patient verbalized understanding of their postoperative instructions, how do to take care of themselves and their incision, and the pain management plan. Please see discharge instructions.? (2) Umbilical hernia: Status: Acute
--- NOTE | 2023-02-10 06:44 | ANES.PREOP_ITS ---
General Info Date of Service Date Performed: 02/10/23 Height: 5 ft 9 in Weight: 99.8 kg Body Mass Index (BMI): 32.5 Surgical Procedure: Operation Date: 02/10/23 07:40 Proposed Procedure Side Surgeon p Herniorrhaphy Inguinal & Umbilical w/ Mesh Right Emely Alves MD Meds Allergies and Home Medications Allergies Allergy/AdvReac Type Severity Reaction Status Date / Time No Known Allergies Allergy Unverified 02/10/23 06:30 Home Medication Medication Instructions Recorded omeprazole magnesium 20 mg 20 mg PO DAILY 12/27/15 tablet,delayed release (Prilosec OTC) naproxen sodium 220 mg tablet 440 mg PO QDAY PRN 08/12/19 (Aleve) atorvastatin 20 mg tablet 20 mg PO QHS 12/22/19 btgeusdoacae-shz-iwgqt acid-vit 1 tab PO QHS 12/22/19 K-lycop 400 mcg-20 mcg-370 mcg tablet (One-A-Day Men's 50 Plus (with vitamin K)) potassium gluconate 595 mg (99 mg) 595 mg PO DAILY 12/22/19 tablet cyanocobalamin (vitamin B-12) 5,000 mcg PO DAILY 06/15/22 1,000 mcg capsule gabapentin 300 mg capsule 900 mg PO QHS 02/08/23 Current Visit Medications: Current Medications Generic Name Dose Route Start Last Admin Trade Name Freq PRN Reason Stop Dose Admin Acetaminophen 1,000 mg 02/10/23 06:00 Acetaminophen 500 Mg Tab PO 02/10/23 16:00 PREOP PEDRO Celecoxib 200 mg 02/10/23 06:00 Celecoxib 200 Mg Cap PO 02/10/23 16:00 PREOP PEDRO Gabapentin 600 mg 02/10/23 06:00 Gabapentin 300 Mg Cap PO 02/10/23 16:00 PREOP PEDRO Ringer's Solution 1,000 mls @ 80 mls/hr 02/10/23 06:00 IV 03/11/23 23:59 INFUSION PEDRO Cefazolin Sodium/Dextrose 2 gm in 50 mls @ 100 mls/hr 02/10/23 06:00 Ancef Duplex IVPB 02/10/23 16:00 PREOP PEDRO Ondansetron HCl 4 mg/ Sodium 52 mls @ 200 mls/hr 02/10/23 06:24 Chloride IVPB 03/12/23 06:23 Q6H PRN PRN IV Miscellaneous Supplies 1 each 02/10/23 06:00 Iv Access IV 03/11/23 23:59 DIRECTED PEDRO Oxycodone HCl 5 mg 02/10/23 06:24 Oxycodone 5 Mg Tab PO 03/12/23 06:23 Q3H PRN PRN Pain Sodium Chloride 0 ml 02/10/23 06:00 Normal Saline Flush 10 Ml Syr IV 03/11/23 23:59 PRN PRN Sodium Chloride 0 ml 02/10/23 06:00 Normal Saline 10 Ml Vial IJ 03/11/23 23:59 DIRECTED PRN Sterile Water 0 ml 02/10/23 06:00 Water,Injection,Sterile 10 Ml Vial IJ 03/11/23 23:59 DIRECTED PRN PFSH Active Problems Active Problems: Problem Status Onset Code Right inguinal hernia K40.90 Umbilical hernia K42.9 Diverticulosis K57.90 Colitis K52.9 Cholelithiasis with acute cholecystitis with biliary obstruction K80.01 Screening for colon cancer Z12.11 Prediabetes R73.03 Headache R51 Testicular pain N50.819 Medical History Medical History Hydrocele GERD (gastroesophageal reflux disease) Left inguinal hernia Hypertriglyceridemia Erectile dysfunction Joint pain Family history of prostate cancer Obstructive sleep apnea of adult Surgical History Surgical History S/P left inguinal hernia repair (~2019) Varicocele Ligation Hydrocelectomy (07/28/17) Cholecystectomy (06/30/16) Tobacco Smoking/Tobacco Use Status: Never Alcohol Alcohol Intake: current Alcohol intake frequency: a few times a month Alcohol type: beer Substance Use Substance use: Never Substance use type: does not use Vital Signs and Lab Results Vital Signs Most Recent Vital Signs in EMR: Most Recent Vital Signs Temp Pulse Resp BP Pulse Ox 36.7 C 77 18 136/99 H 96 02/10/23 06:15 02/10/23 06:15 02/10/23 06:15 02/10/23 06:15 02/10/23 06:15 Lab Results Blood Type / Crossmatch: No Data to Display Complete Blood Count: No Data to Display Complete Metabolic Panel: Sodium 139 mmol/L (136-145) 01/13/23 08:00 Potassium 4.3 mmol/L (3.5-5.1) 01/13/23 08:00 Chloride 104 mmol/L (98-107) 01/13/23 08:00 Carbon Dioxide 23.0 mmol/L (21.0-32.0) 01/13/23 08:00 BUN 11 mg/dL (7-18) 01/13/23 08:00 Creatinine 1.1 mg/dL (0.70-1.30) 01/13/23 08:00 Est GFR (CKD-EPI 2020) 80.27 (mL/min/1.73m2) 01/13/23 08:00 Calcium 9.5 mg/dL (8.5-10.1) 01/13/23 08:00 Albumin 4.1 g/dL (3.4-5.0) 01/13/23 08:00 Glucose 119 mg/dL (74-106) H 01/13/23 08:00 Hemoglobin A1c 6.1 % (<5.7) H 01/13/23 08:00 Liver Function Panel: Alanine Aminotransferase (ALT/SGPT) 40 U/L (16-63) 01/13/23 08: 00 Aspartate Amino Transf (AST/SGOT) 19 U/L (15-37) 01/13/23 08:00 Coagulation Panel: No Data to Display Cardiac Panel: No Data to Display Arterial Blood Gas: No Data to Display Venous Blood Gas: No Data to Display Pancreas Panel: No Data to Display Thyroid Panel: No Data to Display Infectious Disease: No Data to Display Blood Cultures: No Data to Display Toxicology Panel: No Data to Display Anesthesia Assessment and Plan Anesthesia History Personal History: No History of Anesthesia Complications Family History: No Family History of Anesthesia Complications Exercise Tolerance Exercise Tolerance: Metabolic Equivalents>4 Pertinent Negatives Pertinent Negatives: No Symptoms of GERD (well controlled on omeprazole), No Major Pulmonary Symptoms or Complaints and No History of CVA/TIA Cardiac & Pulmonary Exam Cardiac Exam: Normal S1/S2 Heart Sounds Pulmonary Exam: Clear Bilateral Breath Sounds Implantable Cardiac Device Does patient have a Pacemaker or an ICD?: No Airway Exam Known Difficult Airway: No Mallampati Class: 1 Mouth Opening: Normal (> 3cm) Thyromental Distance: Greater than 3 cm Neck Range of Motion: Full ROM Neck Circumference: Normal Teeth Condition: Normal Dentition ASA Classification ASA Score: ASA 2 Emergency Case?: No NPO Status NPO Status: NPO Clears >2 hours, Solids >8 hours Anesthesia Plan Resuscitation Status: Full Code Anesthesia Technique: General Anesthesia Airway Planned: LMA Pain Management: Surgeon and patient request nerve block Monitors Used: Standard Monitors Preoperative Comments:: 52 yo male for right inguinal and umbilical hernia PMH: GERD (omeprazole), Diverticulosis, right inguinal hernia, umbilical hernia
[2023-02-10] MEDS: Acetaminophen 500 MG TAB 1000 MG PO (06:46)
[2023-02-10] MEDS: Gabapentin 300 MG CAP 600 MG PO (06:46)
[2023-02-10] MEDS: Celecoxib 200 MG CAP PO (06:46)
[2023-02-10] MEDS: Lactated Ringers 1,000 ML 80 ML IV (06:47)
--- NOTE | 2023-02-10 08:07 | W.ANESNERVE ---
Nerve Block Single Injection Procedure Date and Time Date Performed: 02/10/23 Procedure Start: 07:34 Location Where Procedure Performed Procedure Location: Operating Room Procedure Stop: 07:41 Reason Performed: Postoperative Analgesia Requesting Provider: Emely Alves Timeout Performed Timeout Performed: Yes Monitoring Used ECG, Blood Pressure, SpO2 and ETCO2 Sterility Sterility: Hand Hygiene, Surgical Cap, Surgical Mask, Sterile Gloves and Chlorhexidine Sedation Given During Procedure Sedation Given (Indicate Dose Given): No Sedation given Patient Mental Status Patient Mental Status: Performed under general anesthesia Nerve Block 1st Nerve Block: Laterality: Left Block Type: Rectus Shealth Unilateral Ultrasound Image Saved?: Yes Needle / Catheter Used: 100mm SonoPlex II Local Anesthetic Bolus (Indicate Dose Given): Injected in 3-5ml increments after negative blood aspiration and Bupivacaine 0.25% Dose:: 20 Additives (Indicate Dose Given): Precedex Dose:: 50 Ultrasound: Sterile probe cover and gel used Nerve Stimulator: Not Used Paresthesia: None Procedure Tolerated: No Complications and Patient tolerated well Procedure Outcome: Successful Performed By: Luis Shen 2nd Nerve Block: Laterality: Right Block Type: TAP Unilateral Ultrasound Image Saved?: Yes Needle / Catheter Used: 100mm SonoPlex II Local Anesthetic Bolus (Indicate Dose Given): Injected in 3-5ml increments after negative blood aspiration and Bupivacaine 0.25% Dose:: 20 ml Additives (Indicate Dose Given): Precedex Dose:: 50 mcg Ultrasound: Sterile probe cover and gel used Nerve Stimulator: Not Used Paresthesia: None Procedure Tolerated: No Complications and Patient tolerated well Procedure Outcome: Successful Performed By: Luis Shen
[2023-02-10] MEDS: Bupivacaine 0.25% Pres-Free 10 ML VIAL (08:44)
--- NOTE | 2023-02-10 12:06 | W.ANESPOSTOP ---
Postoperative Evaluation Date, Time and Location Date Performed: 02/10/23 Time Performed: 12:07 Patient Location: Day Surgery Unit Vital Signs Most Recent Imported Vital Signs: Most Recent Vital Signs Temp Pulse Resp BP Pulse Ox 36.2 C L 65 16 102/75 95 02/10/23 10:55 02/10/23 10:55 02/10/23 10:55 02/10/23 10:55 02/10/23 10:55 Pain Score Most Recent Pain Score: Most Recent Pain Score Pain Level 3 02/10/23 10:55 Assessment Mental Status: Awake (Alert & Oriented to Patient Baseline) Airway and Respiratory Function: Patent airway with normal (patient baseline) respiratory exam Cardiovascular Function: Hemodynamically Stable Hydration Status: Adequately Hydrated Nausea & Vomiting: No Nausea or Vomiting Pain: Pt. Denies Any Pain Peripheral Nerve Block: Patient did not receive a nerve block
== END 2023-02-10 12:20 | disposition home or self-care (01) ==
PROVIDERS: PCP Physician Assistant; Visit Provider Surgery
PROC: (CPT 49591; principal; 2023-02-10 07:30)
DX: K40.90 Unilateral inguinal hernia, without obstruction or gangrene, not specified as recurrent (principal); K42.9 Umbilical hernia without obstruction or gangrene; K21.9 Gastro-esophageal reflux disease without esophagitis; R73.03 Prediabetes; G47.33 Obstructive sleep apnea (adult) (pediatric)
CPT/HCPCS: 49591; 49505; 76942; C1781; J0690; J1100; J2001; J2250; J2405; J2704

== ENCOUNTER 2023-07-28 08:31 | Outpatient (REF) | payer BC, SELFPAY ==
[2023-07-28 15:34] LABS: ALT 26 U/L (16-63); AST 16 U/L (15-37); Albumin 4.2 g/dL (3.4-5.0); Alkaline Phosphatase 104 U/L (46-116); Anion Gap 9.5 mmol/L (3-11); BUN 15 mg/dL (7-18); Bilirubin, Total 0.9 mg/dL (0.2-1.0); CO2 28.5 mmol/L (21.0-32.0); Chloride 105 mmol/L (98-107); Estimated GFR 89.44 (mL/min/1.73m2); Glucose 130 mg/dL (74-106); Potassium 4.6 mmol/L (3.5-5.1); Sodium 143 mmol/L (136-145); Total Protein 7.1 g/dL (6.4-8.2)
[2023-07-28 15:59] LABS: Hemoglobin A1C 6.1 % (<5.7)
[2023-07-29 19:44] LABS: Cholesterol 215 mg/dL (<200); HDL Cholesterol 32 mg/dL (40-60); Triglyceride 624 mg/dL (<150)
[2023-07-29 20:27] LABS: LDL CHOLESTEROL 63 mg/dL (<100)
== END 2023-07-28 08:32 | disposition home or self-care (01) ==
LOC: NCHCN 08:31
PROVIDERS: PCP Physician Assistant; Visit Provider Physician Assistant
DX: R73.03 Prediabetes (principal); E78.1 Pure hyperglyceridemia
CPT/HCPCS: 80053; 80061; 83721; 83036

== ENCOUNTER 2024-04-10 15:12 | Outpatient (REF) | payer BC, SELFPAY ==
[2024-04-10 16:46] LABS: ALT 25 U/L (16-63); AST 14 U/L (15-37); Alkaline Phosphatase 114 U/L (46-116); Anion Gap 8.1 mmol/L (3-11); BUN 12 mg/dL (7-18); Bilirubin, Total 0.62 mg/dL (0.2-1.0); CO2 29.9 mmol/L (21.0-32.0); Calculated LDL 49 mg/dL (<100); Chloride 106 mmol/L (98-107); Cholesterol 133 mg/dL (<200); Estimated GFR 89.44 (mL/min/1.73m2); Glucose 114 mg/dL (74-106); HDL Cholesterol 37 mg/dL (40-60); Potassium 4.3 mmol/L (3.5-5.1); Sodium 144 mmol/L (136-145); Total Protein 6.8 g/dL (6.4-8.2); Triglyceride 239 mg/dL (<150)
[2024-04-10 16:49] LABS: Hemoglobin A1C 6.2 % (<5.7)
[2024-04-10 22:54] LABS: PSA, Diagnostic 0.3 ng/mL (<=3.5)
== END 2024-04-10 15:13 | disposition home or self-care (01) ==
LOC: NCHCN 15:12
PROVIDERS: PCP Physician Assistant; Visit Provider Physician Assistant
DX: Z00.00 Encounter for general adult medical examination without abnormal findings (principal); R73.03 Prediabetes
CPT/HCPCS: 80053; 80061; 83036; 84153

== ENCOUNTER 2024-05-04 17:40 | Outpatient (REF) | payer BC, SELFPAY ==
[2024-05-04 16:11] LABS: Abs Immature Grans 0.02 10^3/uL (0.0-0.06); Absolute Basophil Count 0.03 10^3/uL (0.0-0.2); Absolute Eosinophil Count 0.14 10^3/uL (0.0-0.7); Absolute Lymphocyte Count 2.69 10^3/uL (1.2-3.4); Absolute Monocyte Count 0.62 10^3/uL (0.1-0.8); Absolute Neutrophil Count 3.64 10^3/uL (1.2-6.7); Basophils % 0.4 %; HCT 47.5 % (40.0-50.0); HGB 16.2 g/dL (13.5-17.5); Immature Grans % 0.3 %; Lymphocytes % 37.7 %; MCH 28.2 pg (27.0-33.0); MCHC 34.1 % (32.0-36.0); MCV 83 fL (80-95); MPV 11.6 fL (8.0-11.0); Monocytes % 8.7 %; Neutrophils % 50.9 %; Platelet Count 243 10^3/uL (130-400); RBC 5.75 10^6/uL (4.36-5.78); RDW 12.8 % (11.8-14.1); RDW-SD 38.5 fL; WBC 7.14 10^3/uL (4.4-10.8)
[2024-05-04 16:22] LABS: ALT 37 U/L (16-63); AST 20 U/L (15-37); Alkaline Phosphatase 110 U/L (46-116); Anion Gap 7.1 mmol/L (3-11); BUN 8 mg/dL (7-18); Bilirubin, Total 0.65 mg/dL (0.2-1.0); CO2 26.9 mmol/L (21.0-32.0); CREATININE 1.2 mg/dL (0.70-1.30); Calcium 8.7 mg/dL (8.5-10.1); Chloride 107 mmol/L (98-107); Estimated GFR 71.86 (mL/min/1.73m2); Glucose 105 mg/dL (74-106); Potassium 4.5 mmol/L (3.5-5.1); Sodium 141 mmol/L (136-145); Total Protein 6.7 g/dL (6.4-8.2)
[2024-05-04 16:25] LABS: C-Reactive Protein < 0.50 mg/dL (<or=0.5); ESR < 1 mm/hr (0-20)
[2024-05-04 16:56] LABS: POTASSIUM,URINE RANDOM 36.9 mmol/L
[2024-05-08 21:39] LABS: Tissue Transglutaminase Ab IgA 3.5 U/mL (<4.0); Tissue Transglutaminase Ab IgG 8.1 U/mL
== END 2024-05-04 17:41 | disposition home or self-care (01) ==
LOC: NCHCN 17:40
PROVIDERS: PCP Physician Assistant; Visit Provider Student in an Organized Health Care Education/Training Program
DX: K21.9 Gastro-esophageal reflux disease without esophagitis (principal); E87.6 Hypokalemia
CPT/HCPCS: 80053; 85652; 86364; 87493; 82565; 83516; 83630; 84133; 85025; 86140; 87177

== ENCOUNTER 2024-05-05 11:52 | Outpatient (REF) | payer BC, SELFPAY ==
[2024-05-05 12:53] LABS: C Diff PCR Negative (Negative)
== END 2024-05-05 11:53 | disposition home or self-care (01) ==
LOC: NCHCN 11:52
PROVIDERS: PCP Physician Assistant; Visit Provider Student in an Organized Health Care Education/Training Program
DX: K52.9 Noninfective gastroenteritis and colitis, unspecified (principal)
CPT/HCPCS: 87493; 83630

== ENCOUNTER 2025-02-17 14:31 | Emergency (ER) | payer MEDICAID, SELFPAY ==
[2025-02-17 14:37] VITALS: BP 159/96; PULSE 103; RESP 16; TEMP 36.9; O2SAT 94
--- NOTE | 2025-02-17 15:00 | DI.RAD_ITS ---
Exam(s) XR KNEE LT 3V AP,LAT,LENORA EXAM: XR KNEE LT 3V AP,LAT,LENORA CLINICAL HISTORY: sup/medial pain, atraumatic. TECHNIQUE: 2D digital imaging was performed. COMPARISON: CR XR KNEE LT 3V AP,LAT,LENORA from 03/26/2021 FINDINGS: 3 views No evidence of acute fracture although there is a small joint effusion noted. There is mild degenerative change in the medial and lateral compartments. Bone density normal. No significant osseous lesions. There is lateral offset of the patella. No patellar fracture. Enthesophytes are noted off the anterosuperior and anteroinferior aspects of the patella at the insertional aspects of the quadriceps tendon and patellar tendon, respectively. No evidence of obvious patellar fracture. IMPRESSION: Slight lateral position of the patella. Correlation with any prior lateral patellar dislocation recommended. No fractures. Small amount of increased joint fluid Mild degenerative changes in the medial and lateral compartments. DATA REPOSITORY: RADIATION DOSE DELIVERED:
--- NOTE | 2025-02-17 15:12 | W.ED.GENAD ---
Discharge Plan Disposition Patient Disposition: Home Condition: Fair Discharge Details Clinical Impression: Acute knee pain Primary Care Provider: Phillip Sousa ED Provider: Eugene Griffin Home Meds and New Rx's Prescriptions: New naproxen 500 mg tablet 500 mg PO BID Qty: 20 0RF No Action omeprazole magnesium [Prilosec OTC] 20 MG tablet,delayed release (DR/EC) 20 mg PO DAILY atorvastatin 20 mg tablet 20 mg PO QHS potassium gluconate 595 mg (99 mg) tablet 595 mg PO DAILY One-A-Day Men's 50 Plus(vit K) 400-20-370 mcg tablet 1 tab PO QHS Rx Instructions: give with meal/snack naproxen sodium [Aleve] 220 mg Tablet 440 mg PO QDAY PRN cyanocobalamin (vitamin B-12) 1,000 mcg capsule 5,000 mcg PO DAILY Patient Comments: Take 1 capsule by mouth once a day gabapentin 300 mg capsule 900 mg PO QHS Patient Comments: TAKE TWO CAPSULES BY MOUTH EVERY DAY famotidine 40 mg tablet 40 mg PO BID Patient Comments: TAKE ONE TABLET BY MOUTH TWICE A DAY colesevelam 625 mg tablet 625 mg PO BID Patient Comments: TAKE ONE TABLET BY MOUTH TWICE A DAY WITH MEALS Discharge Instructions Instructions: Knee Pain ED Additional Instructions: If you develop any new or worsening symptoms such as fever, please get rechecked. Stand Alone Forms: Portal Information Referrals: ORTHOPAEDICS,[facility] [OTHER, Orthopaedic] - 5 days HPI General Date/Time Provider Initiated Documentation: 02/17/25 14:34. HPI Narrative: This is a 54-year-old male presenting to the emergency department with a chief complaint of left knee pain. Patient has a past medical history of diverticulosis, colitis, prediabetes. The patient states that yesterday afternoon he spontaneously developed pain in the left superior medial knee. He states that he was not injured and does not have any recent changes in activities. No recent illness. No fevers or rash. No cough or congestion. No dysuria or hematuria. No nausea or vomiting. No numbness, tingling, weakness. Pain is exacerbated by weightbearing. No pain in other joints. Related Data Home Medications Medication Instructions Recorded Confirmed omeprazole magnesium 20 mg 20 mg PO DAILY 12/27/15 02/17/25 tablet,delayed release (Prilosec OTC) naproxen sodium 220 mg tablet 440 mg PO QDAY PRN 08/12/19 02/17/25 (Aleve) atorvastatin 20 mg tablet 20 mg PO QHS 12/22/19 02/17/25 [id number] acid-vit 1 tab PO QHS 12/22/19 02/17/25 K-lycop 400 mcg-20 mcg-370 mcg tablet (One-A-Day Men's 50 Plus (with vitamin K)) potassium gluconate 595 mg (99 mg) 595 mg PO DAILY 12/22/19 02/17/25 tablet cyanocobalamin (vitamin B-12) 5,000 mcg PO DAILY 06/15/22 02/17/25 1,000 mcg capsule gabapentin 300 mg capsule 900 mg PO QHS 02/08/23 02/17/25 colesevelam 625 mg tablet 625 mg PO BID 02/17/25 02/17/25 famotidine 40 mg tablet 40 mg PO BID 02/17/25 02/17/25 naproxen 500 mg tablet 500 mg PO BID #20 tabs 02/17/25 Previous Rx's Medication Instructions Recorded naproxen 500 mg tablet 500 mg PO BID #20 tabs 02/17/25 Allergies Allergy/AdvReac Type Severity Reaction Status Date / Time No Known Allergies Allergy Unverified 02/17/25 14:40 General Stated Complaint: Orthopedic AVILA: 4 Review of Systems All systems reviewed & are unremarkable except as noted in HPI and below Constitutional Constitutional: Reports system reviewed and no additional complaints, except as documented, Denies fever(s), Denies weakness and Denies weight loss Eyes Eyes: Denies blurry vision ENT Ears, Nose, Mouth, and Throat: Denies sore throat Cardiovascular Cardiovascular: Denies chest pain, Denies palpitations and Denies dyspnea Respiratory Respiratory: Denies cough, Denies dyspnea and Denies wheezing Gastrointestinal Gastrointestinal: Denies abdominal pain, Denies diarrhea, Denies nausea and Denies vomiting Genitourinary Genitourinary: Denies hematuria and Denies dysuria Musculoskeletal Musculoskeletal: Denies back pain, Reports arthralgias and Denies numbness Neurologic Neurologic: Denies numbness and Denies weakness Psychiatric Psychiatric: Denies suicidal ideation Endocrine Endocrine: Denies palpitations Allergic/Immunologic Allergic/Immunologic: Denies wheezing Exam Const General: no acute distress and well groomed HENMT Mouth: oral mucosae normal and moist mucous membranes Throat: posterior oropharynx normal Eyes Conjunctivae: conjunctivae normal Sclera: sclerae normal Neck Neck: full ROM and No JVD Resp Effort & Inspection: normal respiratory effort Auscultation: clear to auscultation bilaterally Cardio Rate: regular rate Rhythm: regular rhythm Heart Sounds: no murmurs GI Palpation: soft and nontender Skin General skin exam: no rashes or lesions noted Neuro General: patient alert and patient oriented x3 Extrem General: normal to inspection and full ROM Other: Left knee has no effusion. No ligamentous laxity. No focal areas of tenderness. No rashes. No erythema. Patient expresses pain with ambulation or weightbearing. Range of motion is normal. Distal sensation is intact. Cap refill is less than 1 second in the left foot. Psych Appearance: grossly normal Mental Status: mental status grossly normal Speech and Movement: speech and movement normal Affect: normal affect Thought Process: normal Course Vital Signs Vital signs: Vital Signs Temperature 36.9 C 02/17/25 14:37 Pulse 103 H 02/17/25 14:37 Respiratory Rate 16 02/17/25 14:37 Blood Pressure 159/96 H 02/17/25 14:37 Pulse Oximetry 94 02/17/25 14:37 Temperature 36.9 C 02/17/25 14:37 Temperature Source Oral 02/17/25 14:37 Pulse 103 H 02/17/25 14:37 Respiratory Rate 16 02/17/25 14:37 Blood Pressure 159/96 H 02/17/25 14:37 Pulse Oximetry 94 02/17/25 14:37 Oxygen Delivery Method Room Air 02/17/25 14:37 Oxygen Flow Rate 0 02/17/25 14:37 Medical Decision Making This a 54-year-old male presenting to the emergency department with a chief complaint of knee pain. The patient was seen and examined by me. Old charts were reviewed and nursing notes were reviewed. Prior visits to this ER were several years ago for hernia and are unrelated. X-rays and labs were initiated. These revealed only mild DJD. Labs reviewed by me reveal a white count of 13.3, however CRP and ESR are unremarkable. At this point in time the etiology of the patient's symptoms is unclear although DJD may be the culprit. He will be started on anti-inflammatories and referred to orthopedics. He was provided anticipatory instructions of things to watch for such as fever. It is possible that this is related to a tickborne illness or similar if any infectious symptoms develop. PFSH All Active Problems (Updated 02/17/25 @ 16:19 by Eugene Griffin MD) Acute knee pain (Acute) Diverticulosis (Acute) Colitis (Acute) Cholelithiasis with acute cholecystitis with biliary obstruction (Acute) Screening for colon cancer (Acute) Prediabetes (Acute) Headache (Acute) Testicular pain (Acute) Medical History Hydrocele GERD (gastroesophageal reflux disease) Left inguinal hernia Hypertriglyceridemia Erectile dysfunction Joint pain Family history of prostate cancer Obstructive sleep apnea of adult Surgical History S/P laparoscopic cholecystectomy (~06/30/16) S/P ventral herniorrhaphy (~02/10/23) umbilical hernia S/P right inguinal hernia repair (~02/10/23) S/P left inguinal hernia repair (~2018) Varicocele Ligation Hydrocelectomy (07/28/17) Family History Other Neoplasm Social History Smoking/Tobacco Use Status: Never Smoking risk assessment performed?: Yes Alcohol Intake: current Alcohol Intake frequency: a few times a month Alcohol type: beer Drug use: Never Substance use type: does not use Housing: house Current gender identity: male Do you feel safe at home: Yes Do you feel safe in your relationship?: Yes
[2025-02-17 15:35] LABS: HCT 42.2 % (40.0-50.0); HGB 14.4 g/dL (13.5-17.5); MCH 28.1 pg (27.0-33.0); MCHC 34.1 % (32.0-36.0); MCV 82 fL (80-95); MPV 10.0 fL (8.0-11.0); Platelet Count 220 10^3/uL (130-400); RBC 5.13 10^6/uL (4.36-5.78); RDW 12.6 % (11.8-14.1); RDW-SD 37.9 fL; WBC 13.31 10^3/uL (4.4-10.8)
[2025-02-17 15:43] LABS: ESR < 1 mm/hr (0-20)
[2025-02-17 15:55] LABS: Anion Gap 11 mmol/L (3-11); BUN 19 mg/dL (9-23); C-Reactive Protein < 0.50 mg/dL (<=0.50); CO2 22.0 mmol/L (20.0-31.0); Calcium 8.8 mg/dL (8.3-10.6); Chloride 110 mmol/L (98-107); Glucose 120 mg/dL (74-106); Potassium 4.0 mmol/L (3.5-5.1); Sodium 143 mmol/L (136-145)
[2025-02-17 17:39] VITALS: BP 137/101; PULSE 90; RESP 17; O2SAT 97
[2025-02-19 10:56] LABS: Lyme Ab w Rflx to Lyme Confirm Negative (Negative)
[2025-02-20 15:08] LABS: B. miyamotoi PCR Negative (Negative); Babesia divergens/MO-1 Negative (Negative); Ehrlichia muris eauclairensis Negative (Negative)
== END 2025-02-17 17:41 | disposition home or self-care (01) ==
PROVIDERS: Emergency Provider Emergency Medicine; PCP Physician Assistant
DX: M25.562 Pain in left knee (principal)
CPT/HCPCS: 99283; 99284; 36415; 73562; 80048; 85027; 85652; 87798; 86140; 86618